=== PATIENT | female | born 1980 | race African-American/Black ===

== ENCOUNTER 2018-02-02 19:11 | Emergency (ER) | payer OTHER ==
[~2018-02-02] VITALS: Ht 172.7 cm; Wt 86.2 kg
[2018-02-02 20:07] LABS: MICROSCOPIC NOT IND
[2018-02-02 20:09] LABS: BASOPHILS # (AUTO) 0.03 x10^3/uL (0-0.1); BASOPHILS % (AUTO) 0 % (0-1); EOSINOPHILS # (AUTO) 0.13 x10^3/uL (0-0.4); EOSINOPHILS % (AUTO) 1 % (1-7); LYMPHOCYTES # (AUTO) 2.21 x10^3/uL (1-3.4); LYMPHOCYTES % (AUTO) 24 % (22-44); MD NO; MEAN CORPUSCULAR HEMOGLOBIN 21.2 pg (27.0-34.8); MEAN CORPUSCULAR VOLUME 66.4 fL (80-100); MEAN PLATELET VOLUME 8.9 fL (7.4-10.4); MONOCYTES # (AUTO) 0.72 x10^3/uL (0.2-0.8); MONOCYTES % (AUTO) 8 % (2-9); NEUTROPHILS # (AUTO) 6.31 x10^3/uL (1.8-6.8); NEUTROPHILS % (AUTO) 67 % (42-75); PLATELET COUNT 295 x10^3/uL (130-400); RED CELL DISTRIBUTION WIDTH 21.4 % (9.6-15.2)
[2018-02-02 20:16] LABS: CULTURE INDICATED? NO
[2018-02-02 20:20] LABS: ALANINE AMINOTRANSFERASE 53 U/L (12-78); ALBUMIN 3.5 g/dL (3.4-5.0); ANION GAP 12 mmol/L (5-15); CALCIUM 9.1 mg/dL (8.5-10.1); CHLORIDE 109 mmol/L (98-107); CREATININE 0.58 mg/dL (0.55-1.02)
[2018-02-02 20:23] LABS: ALKALINE PHOSPHATASE 49 U/L (45-117); BILIRUBIN,TOTAL 0.2 mg/dL (0.2-1.0); TOTAL PROTEIN 7.5 g/dL (6.4-8.2)
[2018-02-02 22:09] VITALS: BP 135/88
== END 2018-02-02 23:00 | disposition home or self-care (01) ==
LOC: ED 21:38
DX: O46.92 Antepartum hemorrhage, unspecified, second trimester (principal); O21.9 Vomiting of pregnancy, unspecified; R10.31 Right lower quadrant pain; E86.9 Volume depletion, unspecified; Z3A.16 16 weeks gestation of pregnancy
CPT/HCPCS: 36415; 76815; 80053; 81003; 84112; 85025; 99285

== ENCOUNTER 2020-07-30 11:39 | Inpatient (IN) | payer OTHER ==
[~2020-07-30] VITALS: Ht 175.3 cm; Wt 69.1 kg
--- NOTE | 2020-07-30 12:36 | NUR ---
NEFTALY MATTA AND STATES THAT SHE HAS BEEN HAVING ABDOMINAL AND PELVIC PAIN SINCE SHE HAD AN ENDOMETRIAL ABLASION IN JUNE.
[2020-07-30 12:45] LABS: MICROSCOPIC AUTO
--- NOTE | 2020-07-30 13:57 | NUR ---
RESTING WITH EYES CLOSED WHILE AWAITING DISPO
--- NOTE | 2020-07-30 14:08 | NUR ---
MD AT BEDSIDE EXAMINING PT
[2020-07-30] MEDS ORDERED: ONDANSETRON 2MG/ML, 2ML IVPush ONE (14:30)
[2020-07-30] MEDS ORDERED: SODIUM CHLORIDE FLUSH 10ML SYR IVF ONE (14:30)
[2020-07-30] MEDS ORDERED: SODIUM CHLORIDE 0.9% 1,000ML IVBOLUS ONE (14:30)
[2020-07-30 14:34] LABS: BASOPHILS % (AUTO) 1 % (0-1); EOSINOPHILS % (AUTO) 0 % (1-7); LYMPHOCYTES % (AUTO) 15 % (22-44); MEAN CORPUSCULAR HEMOGLOBIN 21.1 pg (27.0-34.8); MEAN PLATELET VOLUME 8.1 fL (7.4-10.4); MONOCYTES % (AUTO) 10 % (2-9); NEUTROPHILS % (AUTO) 74 % (42-75); PLATELET COUNT 474 x10^3/uL (130-400); RED BLOOD COUNT 3.85 x10^6/uL (3.82-5.3); RED CELL DISTRIBUTION WIDTH 23.3 % (9.6-15.2)
[2020-07-30 14:45] LABS: ALBUMIN 2.6 g/dL (3.4-5.0); ANION GAP 6 mmol/L (5-15); CALCIUM 9.1 mg/dL (8.5-10.1); CHLORIDE 105 mmol/L (98-107); CREATININE 0.69 mg/dL (0.55-1.02)
[2020-07-30] MEDS ORDERED: HYDROmorphone 1 MG/ML, 1ML INJ ONE ×2 (14:53→16:35)
[2020-07-30] MEDS ORDERED: ONDANSETRON 2MG/ML, 2ML ONE (14:54)
[2020-07-30 14:58] LABS: MD MORPH REVIEW ONLY
[2020-07-30] MEDS: HYDROmorphone 2 MG/ML, 1ML IVPush PRN ×2 (14:58→16:39)
[2020-07-30 14:59] LABS: MICROCYTOSIS 2+; OVALOCYTES 1+
[2020-07-30 15:00] LABS: HYPOCHROMIA 1+
[2020-07-30 15:01] LABS: TEAR DROPS 1+
[2020-07-30 15:05] LABS: <PLATELET ESTIMATE> INCREASED; <PLT MORPHOLOGY> NORMAL PLT MORPH; PMNS WITH VACUOLES 1+
--- NOTE | 2020-07-30 15:05 | NUR ---
after medicated as noted on aug for pain, pt to ct via [facility]
[2020-07-30 15:06] LABS: ANISOCYTOSIS 1+
[2020-07-30] MEDS ORDERED: OMNIPAQUE 350 MG/ML, 100ML BOTTLE ONE (15:23)
--- NOTE | 2020-07-30 16:43 | NUR ---
PT STATES SHE HAD REDUCTION IN PAIN TO 0/10 AFTER INITIALLY MEDICATED FOR SAME BUT THAT IT IS BACK TO 5/10. REMEDICATED NOTED ON MAR
[2020-07-30] MEDS ORDERED: GENTAMICIN PER PHARMACY MC PRN ×2 (17:00→21:30)
[2020-07-30] MEDS ORDERED: AMPICILLIN 1 GM in SODIUM CHLORIDE 0.9% 100 ML IV STA (17:00)
[2020-07-30] MEDS ORDERED: CLINDAMYCIN PMX 600MG/50ML 50 ML IV ONE (17:00)
[2020-07-30] MEDS ORDERED: CLINDAMYCIN PMX 600MG/50ML 50 ML ONE (17:04)
[2020-07-30] MEDS ORDERED: SODIUM CHLORIDE 0.9% IV ONE (17:30)
[2020-07-30] MEDS ORDERED: GENTAMICIN IV ONE (17:30)
--- NOTE | 2020-07-30 19:06 | NUR ---
REPORT TO ELIE KRISHNAN. PT TO BE TRANSPORTED TO FLOOR.
--- NOTE | 2020-07-30 19:18 | NUR ---
THROUGHPUT: PER DR JAIMES, "DR SANCHEZ TO SEE PT TO DETERMINE WHETHER OR NOT PT NEEDS SURG, DR SANCHEZ IS AWARE OF PT & WILL SEE PT TONIGHT ADMITTING MD.", ZENON (NOC THROUGHPUT) AWARE.
--- NOTE | 2020-07-30 19:30 | NUR ---
SPOKE WITH EULOGIO DELGADILLO. SHE IS AWARE DR. SANCHEZ IS ON CASE AND DR. SMITH SPOKE WITH THEM.
--- NOTE | 2020-07-30 19:40 | NUR ---
TP: DR SANCHEZ IN ROOM
--- NOTE | 2020-07-30 20:42 | NUR ---
DANAE RN: INFECTION CONTROL OKAY WITH PATIENT GOING TO SURGICAL FLOOR. DR SANCHEZ OKAY WITH PT GOING TO SURGICAL FLOOR NON COVID.
[2020-07-30] MEDS ORDERED: MEPERIDINE/PF 25MG/0.5ML IVPush PRN (21:00)
[2020-07-30] MEDS ORDERED: ONDANSETRON ODT 4 MG PO PRN (21:00)
[2020-07-30] MEDS ORDERED: PHARMACOKINETIC MONITORING MC PRN (21:30)
[2020-07-30] MEDS ORDERED: MEPERIDINE/PF 50 MG/ML IM PRN (21:30)
[2020-07-30] MEDS ORDERED: PHARMACOKINETIC CONSULTATION MC ONE (21:30)
[2020-07-30] MEDS: HYDROmorphone 1 MG/ML, 1ML INJ IVPush PRN (21:56)
[2020-07-30] MEDS: DIPHENHYDRAMINE 50 MG CAPSULE PO PRN (21:56)
[2020-07-30] MEDS: LACTATED RINGERS 1,000 ML IV SCH (22:00)
[2020-07-30] MEDS: ACETAMINOPHEN 500 MG TABLET PO PRN (22:37)
[2020-07-30] MEDS: OXYcodone IR 5MG TABLET PO PRN (22:38)
[2020-07-30 22:40] VITALS: BP 99/61
[2020-07-30] MEDS: CLINDAMYCIN PMX 600MG/50ML 50 ML IV SCH (22:58)
[2020-07-31] MEDS: AMPICILLIN 1 GM in SODIUM CHLORIDE 0.9% 100 ML IV SCH ×4 (00:29→19:39)
[2020-07-31 02:39] VITALS: BP 87/54
[2020-07-31] MEDS: OXYcodone IR 5MG TABLET PO PRN ×2 (02:49→07:20)
[2020-07-31] MEDS ORDERED: GENTAMICIN 100 MG in SODIUM CHLORIDE 0.9% 50 ML IV SCH (03:00)
[2020-07-31 03:26] VITALS: BP 92/57
[2020-07-31] MEDS: CLINDAMYCIN PMX 600MG/50ML 50 ML IV SCH ×4 (04:55→23:20)
[2020-07-31 05:43] LABS: BASOPHILS % (AUTO) 0 % (0-1); EOSINOPHILS % (AUTO) 0 % (1-7); LYMPHOCYTES % (AUTO) 15 % (22-44); MEAN CORPUSCULAR HEMOGLOBIN 21.1 pg (27.0-34.8); MEAN CORPUSCULAR HGB CONC 31.4 g/dL (32.4-35.8); MEAN PLATELET VOLUME 8.9 fL (7.4-10.4); MONOCYTES % (AUTO) 11 % (2-9); NEUTROPHILS % (AUTO) 73 % (42-75); PLATELET COUNT 411 x10^3/uL (130-400); RED CELL DISTRIBUTION WIDTH 22.5 % (9.6-15.2)
[2020-07-31] MEDS: HYDROmorphone 1 MG/ML, 1ML INJ IVPush PRN ×2 (06:08→13:01)
[2020-07-31 06:41] LABS: MD SCAN
[2020-07-31 07:55] VITALS: BP 103/64
[2020-07-31] MEDS: LACTATED RINGERS 1,000 ML IV SCH ×3 (08:00→23:07)
[2020-07-31] MEDS ORDERED: MIDAZOLAM 1 MG/ML, 2ML ONE (08:29)
[2020-07-31] MEDS ORDERED: FENTANYL PF 100 MCG/2ML ONE ×2 (08:29→09:00)
[2020-07-31] MEDS ORDERED: OXYcodone 5 MG/5 ML ORAL.SOL UDC PO PRN (09:00)
[2020-07-31] MEDS ORDERED: HYDROcodone/APAP 7.5-325MG/15ML UDC PO PRN (09:00)
[2020-07-31] MEDS ORDERED: ONDANSETRON 2MG/ML, 2ML IVPush PRN (09:00)
[2020-07-31] MEDS ORDERED: HYDROmorphone 1 MG/ML, 1ML INJ IVPush PRN (09:00)
[2020-07-31] MEDS ORDERED: MEPERIDINE/PF 25MG/0.5ML IVPush PRN (09:00)
[2020-07-31] MEDS ORDERED: PROMETHAZINE 25 MG/ML, 1ML IVPush PRN (09:00)
[2020-07-31] MEDS ORDERED: OXYcodone 5 MG/5 ML ORAL.SOL UDC ONE (09:01)
[2020-07-31] MEDS ORDERED: PROPOFOL 10 MG/ML, 20ML ONE (09:26)
[2020-07-31] MEDS ORDERED: LIDOCAINE-MPF 2% ,5ML ONE (09:26)
[2020-07-31] MEDS ORDERED: ROCURONIUM 10MG/ML,5ML ONE ×2 (09:26)
[2020-07-31] MEDS ORDERED: PHENYLEPHRINE 10 MG/ML ONE (09:26)
[2020-07-31] MEDS ORDERED: CEFAZOLIN 1,000 MG ONE (09:26)
[2020-07-31] MEDS ORDERED: SUCCINYLCHOLINE 20 MG/ML, 10ML ONE (09:26)
[2020-07-31] MEDS ORDERED: ONDANSETRON 2MG/ML, 2ML ONE (09:26)
[2020-07-31] MEDS ORDERED: DEXAMETHASONE 4 MG/ML, 5ML ONE (09:26)
[2020-07-31] MEDS ORDERED: GLYCOPYRROLATE 0.2MG/1ML, 5ML ONE (09:26)
[2020-07-31] MEDS ORDERED: NEOSTIGMINE 1 MG/ML, 10ML ONE (09:26)
[2020-07-31] MEDS ORDERED: BUPIVACAINE/PF 0.25% ONE (09:34)
[2020-07-31] MEDS: GENTAMICIN 120 MG in SODIUM CHLORIDE 0.9% 50 ML IV SCH ×2 (10:00→18:26)
[2020-07-31] MEDS: FENTANYL PF 100 MCG/2ML IV PRN ×2 (12:15→12:20)
[2020-07-31] MEDS ORDERED: KETOROLAC 30 MG/1 ML ONE (12:21)
[2020-07-31] MEDS ORDERED: KETOROLAC 30 MG/1 ML IVPush ONE (12:30)
[2020-07-31 12:54] VITALS: BP 102/63
[2020-07-31] MEDS: OXYcodone 5 MG/5 ML ORAL.SOL UDC PO PRN ×3 (15:57→23:23)
[2020-07-31] MEDS: IBUPROFEN 600 MG TABLET PO SCH ×2 (15:57→22:09)
[2020-07-31 17:43] LABS: BASOPHILS % (AUTO) 0 % (0-1); EOSINOPHILS % (AUTO) 0 % (1-7); LYMPHOCYTES % (AUTO) 3 % (22-44); MEAN CORPUSCULAR HEMOGLOBIN 22.1 pg (27.0-34.8); MEAN CORPUSCULAR HGB CONC 31.5 g/dL (32.4-35.8); MEAN PLATELET VOLUME 7.6 fL (7.4-10.4); MONOCYTES % (AUTO) 5 % (2-9); NEUTROPHILS % (AUTO) 92 % (42-75); PLATELET COUNT 420 x10^3/uL (130-400); RED BLOOD COUNT 4.14 x10^6/uL (3.82-5.3)
[2020-07-31 17:54] LABS: ANION GAP 7 mmol/L (5-15); CALCIUM 8.3 mg/dL (8.5-10.1); CHLORIDE 107 mmol/L (98-107); CREATININE 0.74 mg/dL (0.55-1.02)
[2020-07-31 18:10] LABS: MD SCAN
[2020-07-31] MEDS: SIMETHICONE 80 MG CHEW TAB PO SCH (19:39)
[2020-07-31 20:05] VITALS: BP 93/59
[2020-07-31] MEDS: HYDROmorphone 1 MG/ML, 1ML INJ IV PRN (22:09)
[2020-07-31] MEDS: ACETAMINOPHEN 500 MG TABLET PO PRN (23:22)
[2020-07-31] MEDS: DIPHENHYDRAMINE 50 MG CAPSULE PO PRN (23:22)
[2020-07-31 23:26] VITALS: BP 87/55
[2020-08-01] VITALS (9 sets, daily range): BP systolic 82–105; BP diastolic 55–75
[2020-08-01] MEDS: AMPICILLIN 1 GM in SODIUM CHLORIDE 0.9% 100 ML IV SCH ×2 (01:34→07:29)
[2020-08-01] MEDS: HYDROmorphone 1 MG/ML, 1ML INJ IV PRN ×2 (01:44→11:00)
[2020-08-01] MEDS: GENTAMICIN 120 MG in SODIUM CHLORIDE 0.9% 50 ML IV SCH ×2 (02:22→11:01)
[2020-08-01] MEDS: OXYcodone 5 MG/5 ML ORAL.SOL UDC PO PRN ×2 (03:50→07:30)
[2020-08-01] MEDS: CLINDAMYCIN PMX 600MG/50ML 50 ML IV SCH ×2 (05:08→11:43)
[2020-08-01] MEDS: IBUPROFEN 600 MG TABLET PO SCH ×4 (05:08→19:45)
[2020-08-01 05:40] LABS: BASOPHILS % (AUTO) 0 % (0-1); EOSINOPHILS % (AUTO) 0 % (1-7); LYMPHOCYTES % (AUTO) 5 % (22-44); MEAN CORPUSCULAR HEMOGLOBIN 22.2 pg (27.0-34.8); MEAN CORPUSCULAR HGB CONC 32.1 g/dL (32.4-35.8); MEAN PLATELET VOLUME 8.7 fL (7.4-10.4); MONOCYTES % (AUTO) 6 % (2-9); NEUTROPHILS % (AUTO) 89 % (42-75); PLATELET COUNT 348 x10^3/uL (130-400); RED BLOOD COUNT 3.35 x10^6/uL (3.82-5.3); RED CELL DISTRIBUTION WIDTH 23.6 % (9.6-15.2)
[2020-08-01 06:59] LABS: MD SCAN
[2020-08-01] MEDS: ACETAMINOPHEN 500 MG TABLET PO PRN (07:30)
[2020-08-01] MEDS: SIMETHICONE 80 MG CHEW TAB PO SCH ×2 (08:57→19:45)
[2020-08-01] MEDS: LACTATED RINGERS 1,000 ML IV SCH ×2 (09:14→21:57)
[2020-08-01] MEDS: PIPERACILLIN/TAZO/PMX 3.375GM 50 ML IV SCH ×2 (16:02→21:56)
[2020-08-01] MEDS ORDERED: MAGNESIUM HYDROXIDE 8%, 30ML UDC ONE (18:33)
[2020-08-01] MEDS: MAGNESIUM HYDROXIDE 8%, 30ML UDC PO SCH (18:42)
[2020-08-01] MEDS: OXYcodone/APAP 7.5/325MG TABLET PO PRN (22:06)
[2020-08-01] MEDS ORDERED: GENTAMICIN 120 MG in SODIUM CHLORIDE 0.9% 50 ML IV SCH (23:00)
[2020-08-02] MEDS: DIPHENHYDRAMINE 50 MG CAPSULE PO PRN (00:54)
[2020-08-02 01:34] VITALS: BP 90/56
[2020-08-02] MEDS: PIPERACILLIN/TAZO/PMX 3.375GM 50 ML IV SCH ×4 (03:38→21:58)
[2020-08-02 05:21] LABS: BASOPHILS % (AUTO) 0 % (0-1); EOSINOPHILS % (AUTO) 0 % (1-7); LYMPHOCYTES % (AUTO) 9 % (22-44); MEAN CORPUSCULAR HEMOGLOBIN 22.8 pg (27.0-34.8); MEAN CORPUSCULAR HGB CONC 32.3 g/dL (32.4-35.8); MONOCYTES % (AUTO) 5 % (2-9); NEUTROPHILS % (AUTO) 86 % (42-75); PLATELET COUNT 318 x10^3/uL (130-400); RED BLOOD COUNT 3.48 x10^6/uL (3.82-5.3); RED CELL DISTRIBUTION WIDTH 24.9 % (9.6-15.2)
[2020-08-02 05:33] LABS: ALBUMIN 1.8 g/dL (3.4-5.0); ANION GAP 5 mmol/L (5-15); CHLORIDE 108 mmol/L (98-107)
[2020-08-02 05:39] LABS: ALANINE AMINOTRANSFERASE 133 U/L (12-78); ALKALINE PHOSPHATASE 263 U/L (45-117); BILIRUBIN,TOTAL 0.8 mg/dL (0.2-1.0); CREATININE 0.66 mg/dL (0.55-1.02)
[2020-08-02 06:09] LABS: MD MORPH REVIEW ONLY
[2020-08-02 06:10] LABS: ANISOCYTOSIS 2+; HYPOCHROMIA 1+; MICROCYTOSIS 2+; OVALOCYTES 2+
[2020-08-02 06:11] LABS: TARGET CELLS 1+
[2020-08-02 06:12] LABS: <PLATELET ESTIMATE> ADEQUATE; <PLT MORPHOLOGY> NORMAL PLT MORPH; TEAR DROPS 1+
[2020-08-02] MEDS: IBUPROFEN 600 MG TABLET PO SCH ×4 (06:19→21:58)
[2020-08-02] MEDS: LACTATED RINGERS 1,000 ML IV SCH ×3 (06:24→23:35)
[2020-08-02] MEDS: OXYcodone/APAP 7.5/325MG TABLET PO PRN ×3 (06:35→23:35)
[2020-08-02 07:50] VITALS: BP 123/85
[2020-08-02] MEDS: SIMETHICONE 80 MG CHEW TAB PO SCH ×2 (07:53→21:58)
[2020-08-02] MEDS: MAGNESIUM HYDROXIDE 8%, 30ML UDC PO SCH (07:54)
[2020-08-02] MEDS: NORETHINDRONE 5 MG TAB PO SCH (09:00)
[2020-08-02] MEDS: POTASSIUM CHLORIDE 10 MEQ TABLET.ER PO SCH (09:37)
[2020-08-02] MEDS: CALCIUM CARBONATE 500 MG TABLET PO SCH (09:37)
[2020-08-02 13:56] VITALS: BP 101/68
[2020-08-02 14:12] LABS: INTERNATIONAL NORMALIZED RATIO 1.43 (0.93-1.1); PARTIAL THROMBOPLASTIN TIME 30 Seconds (25-31); PROTHROMBIN TIME 15.2 Seconds (9.6-11.5)
[2020-08-02 14:18] LABS: FIBRINOGEN > 713 mg/dL (200-340)
[2020-08-02 19:12] VITALS: BP 106/66
[2020-08-02 21:27] LABS: HCT (SEDRATE) 28.9 % (34.6-47.8)
[2020-08-03 00:58] VITALS: BP 108/59
[2020-08-03] MEDS: PIPERACILLIN/TAZO/PMX 3.375GM 50 ML IV SCH ×4 (04:21→21:04)
[2020-08-03 04:36] LABS: BASOPHILS % (AUTO) 1 % (0-1); EOSINOPHILS % (AUTO) 0 % (1-7); LYMPHOCYTES % (AUTO) 11 % (22-44); MEAN CORPUSCULAR HGB CONC 32.4 g/dL (32.4-35.8); MEAN PLATELET VOLUME 8.5 fL (7.4-10.4); MONOCYTES % (AUTO) 8 % (2-9); NEUTROPHILS % (AUTO) 81 % (42-75); PLATELET COUNT 321 x10^3/uL (130-400); RED BLOOD COUNT 3.42 x10^6/uL (3.82-5.3); RED CELL DISTRIBUTION WIDTH 24.9 % (9.6-15.2)
[2020-08-03 04:47] LABS: ALBUMIN 1.7 g/dL (3.4-5.0); ANION GAP 5 mmol/L (5-15); CHLORIDE 109 mmol/L (98-107)
[2020-08-03 04:51] LABS: ALANINE AMINOTRANSFERASE 81 U/L (12-78); ALKALINE PHOSPHATASE 244 U/L (45-117); BILIRUBIN,TOTAL 0.4 mg/dL (0.2-1.0); CREATININE 0.64 mg/dL (0.55-1.02); TOTAL PROTEIN 5.5 g/dL (6.4-8.2)
[2020-08-03] MEDS: IBUPROFEN 600 MG TABLET PO SCH ×4 (05:27→20:08)
[2020-08-03] MEDS: LACTATED RINGERS 1,000 ML IV SCH ×3 (05:27→23:12)
[2020-08-03] MEDS: OXYcodone/APAP 7.5/325MG TABLET PO PRN ×3 (05:27→20:09)
[2020-08-03 05:46] LABS: ANISOCYTOSIS 2+; MD MORPH REVIEW ONLY; MICROCYTOSIS 2+
[2020-08-03 05:47] LABS: OVALOCYTES 2+; SCHISTOCYTES 1+
[2020-08-03 05:48] LABS: HYPOCHROMIA 1+
[2020-08-03 05:49] LABS: <PLATELET ESTIMATE> ADEQUATE; <PLT MORPHOLOGY> NORMAL PLT MORPH; TARGET CELLS 1+; TEAR DROPS 1+
[2020-08-03 07:55] VITALS: BP 106/74
[2020-08-03] MEDS: SIMETHICONE 80 MG CHEW TAB PO SCH ×2 (08:06→20:08)
[2020-08-03] MEDS: CALCIUM CARBONATE 500 MG TABLET PO SCH (08:06)
[2020-08-03] MEDS: POTASSIUM CHLORIDE 10 MEQ TABLET.ER PO SCH (08:06)
[2020-08-03] MEDS: NORETHINDRONE 5 MG TAB PO SCH (08:08)
[2020-08-03] MEDS ORDERED: POTASSIUM CHLORIDE 20 MEQ TAB.ER.PRT PO ONE (11:00)
[2020-08-03 12:38] LABS: ABSOLUTE RETICS # 0.039 x10^6/uL (0.5-2.5); RED BLOOD COUNT 3.76 x10^6/uL (3.82-5.3); RETICULOCYTE COUNT % 1.04 % (0.5-1.5)
[2020-08-03 13:35] VITALS: BP 120/80
[2020-08-03 18:37] VITALS: BP 121/88
[2020-08-04 01:11] VITALS: BP 120/83
[2020-08-04] MEDS: OXYcodone/APAP 7.5/325MG TABLET PO PRN ×4 (02:29→22:39)
[2020-08-04] MEDS: DIPHENHYDRAMINE 50 MG CAPSULE PO PRN (02:31)
[2020-08-04] MEDS: PIPERACILLIN/TAZO/PMX 3.375GM 50 ML IV SCH ×4 (02:58→22:40)
[2020-08-04 05:10] LABS: BASOPHILS % (AUTO) 0 % (0-1); EOSINOPHILS % (AUTO) 0 % (1-7); LYMPHOCYTES % (AUTO) 15 % (22-44); MEAN CORPUSCULAR HEMOGLOBIN 23.4 pg (27.0-34.8); MEAN CORPUSCULAR HGB CONC 32.7 g/dL (32.4-35.8); MEAN PLATELET VOLUME 8.5 fL (7.4-10.4); MONOCYTES % (AUTO) 8 % (2-9); NEUTROPHILS % (AUTO) 77 % (42-75); PLATELET COUNT 345 x10^3/uL (130-400); RED BLOOD COUNT 3.35 x10^6/uL (3.82-5.3); RED CELL DISTRIBUTION WIDTH 26.6 % (9.6-15.2)
[2020-08-04 05:17] LABS: ALANINE AMINOTRANSFERASE 60 U/L (12-78); ALBUMIN 1.6 g/dL (3.4-5.0); ANION GAP 7 mmol/L (5-15); CALCIUM 8.2 mg/dL (8.5-10.1); CHLORIDE 106 mmol/L (98-107); CREATININE 0.63 mg/dL (0.55-1.02)
[2020-08-04 05:19] LABS: ALKALINE PHOSPHATASE 266 U/L (45-117); BILIRUBIN,TOTAL 0.4 mg/dL (0.2-1.0); TOTAL PROTEIN 5.8 g/dL (6.4-8.2)
[2020-08-04 05:29] LABS: D-DIMER 13.34 ug/mlFEU (0.00-0.52); INTERNATIONAL NORMALIZED RATIO 1.27 (0.93-1.1); PROTHROMBIN TIME 13.5 Seconds (9.6-11.5)
[2020-08-04 05:35] LABS: FIBRINOGEN > 713 mg/dL (200-340)
[2020-08-04] MEDS: IBUPROFEN 600 MG TABLET PO SCH ×4 (05:50→22:40)
[2020-08-04] MEDS: LACTATED RINGERS 1,000 ML IV SCH (05:50)
[2020-08-04 05:58] LABS: MD SCAN
[2020-08-04] MEDS ORDERED: POTASSIUM CHLORIDE 20 MEQ PACKET PO ONE (06:30)
[2020-08-04] MEDS: CALCIUM CARBONATE 500 MG TABLET PO SCH (08:47)
[2020-08-04] MEDS: POTASSIUM CHLORIDE 10 MEQ TABLET.ER PO SCH (08:47)
[2020-08-04] MEDS: NORETHINDRONE 5 MG TAB PO SCH (08:47)
[2020-08-04] MEDS: SIMETHICONE 80 MG CHEW TAB PO SCH ×2 (08:47→22:39)
[2020-08-04 09:07] VITALS: BP 130/86
[2020-08-04] MEDS ORDERED: SODIUM CHLORIDE FLUSH 10ML SYR IVF PRN (14:00)
[2020-08-04 15:58] VITALS: BP 138/84
[2020-08-04] MEDS ORDERED: OXYcodone/APAP 7.5/325MG TABLET ONE (16:33)
[2020-08-04 19:55] VITALS: BP 138/92
[2020-08-04] MEDS: SODIUM CHLORIDE FLUSH 10ML SYR IVF SCH (22:40)
[2020-08-05 01:31] VITALS: BP 112/74
[2020-08-05] MEDS: PIPERACILLIN/TAZO/PMX 3.375GM 50 ML IV SCH ×4 (04:38→22:00)
[2020-08-05] MEDS: IBUPROFEN 600 MG TABLET PO SCH ×5 (04:38→20:47)
[2020-08-05] MEDS: OXYcodone/APAP 7.5/325MG TABLET PO PRN ×5 (04:38→20:42)
[2020-08-05 06:15] LABS: BASOPHILS % (AUTO) 0 % (0-1); EOSINOPHILS % (AUTO) 0 % (1-7); LYMPHOCYTES % (AUTO) 18 % (22-44); MEAN CORPUSCULAR HGB CONC 32.8 g/dL (32.4-35.8); MEAN PLATELET VOLUME 8.2 fL (7.4-10.4); MONOCYTES % (AUTO) 12 % (2-9); NEUTROPHILS % (AUTO) 70 % (42-75); PLATELET COUNT 363 x10^3/uL (130-400); RED BLOOD COUNT 3.52 x10^6/uL (3.82-5.3)
[2020-08-05 06:36] LABS: MD SCAN
[2020-08-05] MEDS ORDERED: POTASSIUM CHLORIDE 10% 40 MEQ/30 ML UDC PO ONE (07:30)
[2020-08-05 08:15] VITALS: BP 122/81
[2020-08-05] MEDS: NORETHINDRONE 5 MG TAB PO SCH (09:00)
[2020-08-05] MEDS: POTASSIUM CHLORIDE 10 MEQ TABLET.ER PO SCH (10:27)
[2020-08-05] MEDS: SIMETHICONE 80 MG CHEW TAB PO SCH ×2 (10:27→20:42)
[2020-08-05] MEDS: CALCIUM CARBONATE 500 MG TABLET PO SCH (10:27)
[2020-08-05] MEDS: SODIUM CHLORIDE FLUSH 10ML SYR IVF SCH ×2 (10:46→20:43)
[2020-08-05 13:45] VITALS: BP 129/89
[2020-08-05] MEDS ORDERED: MAGNESIUM SULFATE PMX 2GM/50ML 50 ML IV ONE (18:00)
[2020-08-05 19:29] VITALS: BP 118/77
[2020-08-05] MEDS: MAGNESIUM OXIDE 400 MG TABLET PO SCH (20:42)
[2020-08-05] MEDS: DIPHENHYDRAMINE 50 MG CAPSULE PO PRN (22:00)
[2020-08-06 00:10] VITALS: BP 114/67
[2020-08-06] MEDS: OXYcodone/APAP 7.5/325MG TABLET PO PRN ×5 (00:55→23:46)
[2020-08-06] MEDS: PIPERACILLIN/TAZO/PMX 3.375GM 50 ML IV SCH ×4 (05:04→23:46)
[2020-08-06] MEDS: PANTOPRAZOLE 40MG TABLET PO SCH (06:15)
[2020-08-06] MEDS: IBUPROFEN 600 MG TABLET PO SCH ×4 (06:15→19:40)
[2020-08-06 06:39] VITALS: BP 132/87
[2020-08-06 06:48] LABS: BASOPHILS % (AUTO) 0 % (0-1); EOSINOPHILS % (AUTO) 0 % (1-7); LYMPHOCYTES % (AUTO) 17 % (22-44); MEAN CORPUSCULAR HEMOGLOBIN 22.9 pg (27.0-34.8); MEAN CORPUSCULAR HGB CONC 32.6 g/dL (32.4-35.8); MEAN PLATELET VOLUME 7.7 fL (7.4-10.4); MONOCYTES % (AUTO) 10 % (2-9); NEUTROPHILS % (AUTO) 72 % (42-75); PLATELET COUNT 385 x10^3/uL (130-400); RED BLOOD COUNT 3.51 x10^6/uL (3.82-5.3); RED CELL DISTRIBUTION WIDTH 26.6 % (9.6-15.2)
[2020-08-06 07:15] LABS: ANISOCYTOSIS 2+; HYPOCHROMIA 1+; MD MORPH REVIEW ONLY; MICROCYTOSIS 2+; OVALOCYTES 2+
[2020-08-06 07:16] LABS: <PLATELET ESTIMATE> ADEQUATE; <PLT MORPHOLOGY> NORMAL PLT MORPH; SCHISTOCYTES 1+; TARGET CELLS 1+; TEAR DROPS 1+
[2020-08-06] MEDS: SODIUM CHLORIDE FLUSH 10ML SYR IVF SCH ×2 (09:00→23:47)
[2020-08-06] MEDS: NORETHINDRONE 5 MG TAB PO SCH (09:46)
[2020-08-06] MEDS: MAGNESIUM OXIDE 400 MG TABLET PO SCH ×2 (09:46→19:40)
[2020-08-06] MEDS: POTASSIUM CHLORIDE 10 MEQ TABLET.ER PO SCH (09:46)
[2020-08-06] MEDS: SIMETHICONE 80 MG CHEW TAB PO SCH ×2 (09:46→19:40)
[2020-08-06] MEDS: CALCIUM CARBONATE 500 MG TABLET PO SCH (09:46)
[2020-08-06 13:12] LABS: BASOPHILS % (AUTO) 0 % (0-1); EOSINOPHILS % (AUTO) 0 % (1-7); LYMPHOCYTES % (AUTO) 18 % (22-44); MEAN CORPUSCULAR HEMOGLOBIN 22.6 pg (27.0-34.8); MEAN CORPUSCULAR HGB CONC 32.3 g/dL (32.4-35.8); MEAN PLATELET VOLUME 8.6 fL (7.4-10.4); MONOCYTES % (AUTO) 10 % (2-9); NEUTROPHILS % (AUTO) 72 % (42-75); PLATELET COUNT 423 x10^3/uL (130-400); RED BLOOD COUNT 3.63 x10^6/uL (3.82-5.3); RED CELL DISTRIBUTION WIDTH 26.8 % (9.6-15.2)
[2020-08-06 13:14] VITALS: BP 129/85
[2020-08-06 13:20] LABS: ALANINE AMINOTRANSFERASE 42 U/L (12-78); ANION GAP 6 mmol/L (5-15); CALCIUM 8.6 mg/dL (8.5-10.1); CHLORIDE 106 mmol/L (98-107); CREATININE 0.77 mg/dL (0.55-1.02)
[2020-08-06 13:22] LABS: ALKALINE PHOSPHATASE 310 U/L (45-117); BILIRUBIN,TOTAL 0.4 mg/dL (0.2-1.0); TOTAL PROTEIN 7.1 g/dL (6.4-8.2)
[2020-08-06 14:09] LABS: MD MORPH REVIEW ONLY
[2020-08-06 14:10] LABS: <PLATELET ESTIMATE> INCREASED; <PLT MORPHOLOGY> NORMAL PLT MORPH
[2020-08-06 14:11] LABS: ANISOCYTOSIS 2+; HYPOCHROMIA 1+; MICROCYTOSIS 2+; OVALOCYTES 2+; TARGET CELLS 1+; TEAR DROPS 1+
[2020-08-06] MEDS ORDERED: OMNIPAQUE 350 MG/ML, 100ML BOTTLE ONE (15:40)
[2020-08-06] MEDS ORDERED: morphine SULFATE 10 MG/ML, 1ML IVPush PRN (19:30)
[2020-08-06 19:52] VITALS: BP 134/82
[2020-08-07 00:43] VITALS: BP 112/78
[2020-08-07] MEDS: IBUPROFEN 600 MG TABLET PO SCH ×4 (04:17→22:46)
[2020-08-07] MEDS: PANTOPRAZOLE 40MG TABLET PO SCH (04:17)
[2020-08-07] MEDS: OXYcodone/APAP 7.5/325MG TABLET PO PRN ×5 (04:17→22:46)
[2020-08-07] MEDS: PIPERACILLIN/TAZO/PMX 3.375GM 50 ML IV SCH ×3 (05:46→20:53)
[2020-08-07 06:14] LABS: MEAN CORPUSCULAR HEMOGLOBIN 23.4 pg (27.0-34.8); MEAN CORPUSCULAR HGB CONC 33.3 g/dL (32.4-35.8); MEAN PLATELET VOLUME 8.5 fL (7.4-10.4); PLATELET COUNT 399 x10^3/uL (130-400); RED BLOOD COUNT 3.22 x10^6/uL (3.82-5.3); RED CELL DISTRIBUTION WIDTH 26.3 % (9.6-15.2)
[2020-08-07 06:26] LABS: ALBUMIN 1.8 g/dL (3.4-5.0); ANION GAP 7 mmol/L (5-15); CALCIUM 8.4 mg/dL (8.5-10.1); CHLORIDE 107 mmol/L (98-107)
[2020-08-07 06:30] LABS: ALANINE AMINOTRANSFERASE 35 U/L (12-78); ALKALINE PHOSPHATASE 281 U/L (45-117); BILIRUBIN,TOTAL 0.4 mg/dL (0.2-1.0); CREATININE 0.65 mg/dL (0.55-1.02); TOTAL PROTEIN 6.6 g/dL (6.4-8.2)
[2020-08-07 06:59] LABS: MD YES
[2020-08-07 07:00] LABS: BAND#(MANUAL) 0.11 x10^3/uL; BANDS%(MANUAL) 1 % (0-7); BASOS#(MANUAL) 0.11 x10^3/uL (0-0.1); BASOS% (MANUAL) 1 % (0-1); EOS#(MANUAL) 0.11 x10^3/uL (0.0-0.4); EOS% (MANUAL) 1 % (1-7); LYMPH#(MANUAL) 0.96 x10^3/uL (1-3.4); LYMPHS% (MANUAL) 9 % (22-44); MONOS#(MANUAL) 0.54 x10^3/uL (0.3-2.7); MONOS% (MANUAL) 5 % (2-9); SEG#(MANUAL) 8.88 x10^3/uL (1.8-6.8); SEGS% (MANUAL) 83 % (42-75)
[2020-08-07 07:01] LABS: <PLATELET ESTIMATE> ADEQUATE; <PLT MORPHOLOGY> NORMAL PLT MORPH
[2020-08-07 07:02] LABS: ANISOCYTOSIS 2+
[2020-08-07 07:03] LABS: HYPOCHROMIA 1+; MICROCYTOSIS 2+; OVALOCYTES 2+; TARGET CELLS 1+
[2020-08-07 07:04] LABS: SCHISTOCYTES 1+
[2020-08-07] MEDS: POTASSIUM CHLORIDE 10 MEQ TABLET.ER PO SCH (07:41)
[2020-08-07] MEDS: CALCIUM CARBONATE 500 MG TABLET PO SCH (07:41)
[2020-08-07] MEDS: NORETHINDRONE 5 MG TAB PO SCH (07:41)
[2020-08-07] MEDS: MAGNESIUM OXIDE 400 MG TABLET PO SCH ×2 (07:41→22:46)
[2020-08-07] MEDS: SIMETHICONE 80 MG CHEW TAB PO SCH ×2 (07:41→22:46)
[2020-08-07] MEDS: HYDROmorphone 1 MG/ML, 1ML INJ IV PRN ×2 (09:01→11:11)
[2020-08-07] MEDS: SODIUM CHLORIDE FLUSH 10ML SYR IVF SCH ×2 (09:05→20:54)
[2020-08-07 09:10] VITALS: BP 125/81
[2020-08-07] MEDS ORDERED: LIDOCAINE 1%, 10ML ONE ×2 (10:17→12:21)
[2020-08-07] MEDS ORDERED: MIDAZOLAM 1 MG/ML, 5ML ONE (11:09)
[2020-08-07] MEDS ORDERED: FENTANYL PF 100 MCG/2ML ONE (11:09)
[2020-08-07] MEDS ORDERED: FLUMAZENIL 0.1 MG/1 ML, 5ML ONE (11:10)
[2020-08-07] MEDS ORDERED: NALOXONE 1 MG/ML, 2ML ONE (11:10)
[2020-08-07 19:11] VITALS: BP 111/76
[2020-08-08] VITALS (7 sets, daily range): BP systolic 102–115; BP diastolic 50–79
[2020-08-08] MEDS: PIPERACILLIN/TAZO/PMX 3.375GM 50 ML IV SCH ×4 (02:34→20:42)
[2020-08-08] MEDS: OXYcodone/APAP 7.5/325MG TABLET PO PRN ×5 (02:34→20:44)
[2020-08-08 02:55] LABS: ALANINE AMINOTRANSFERASE 30 U/L (12-78); ANION GAP 9 mmol/L (5-15); CALCIUM 8.4 mg/dL (8.5-10.1); CHLORIDE 105 mmol/L (98-107)
[2020-08-08 02:57] LABS: ALKALINE PHOSPHATASE 324 U/L (45-117); BILIRUBIN,TOTAL 0.4 mg/dL (0.2-1.0); TOTAL PROTEIN 7.2 g/dL (6.4-8.2)
[2020-08-08 02:59] LABS: MEAN CORPUSCULAR HEMOGLOBIN 22.5 pg (27.0-34.8); MEAN CORPUSCULAR HGB CONC 32.2 g/dL (32.4-35.8); MEAN PLATELET VOLUME 8.5 fL (7.4-10.4); PLATELET COUNT 453 x10^3/uL (130-400); RED BLOOD COUNT 3.54 x10^6/uL (3.82-5.3); RED CELL DISTRIBUTION WIDTH 27.4 % (9.6-15.2)
[2020-08-08 03:38] LABS: MD YES
[2020-08-08 03:41] LABS: ANISOCYTOSIS 2+; BAND#(MANUAL) 0.16 x10^3/uL; BANDS%(MANUAL) 1 % (0-7); HYPOCHROMIA 1+; LYMPH#(MANUAL) 1.09 x10^3/uL (1-3.4); LYMPHS% (MANUAL) 7 % (22-44); MICROCYTOSIS 2+; MONOS#(MANUAL) 0.62 x10^3/uL (0.3-2.7); MONOS% (MANUAL) 4 % (2-9); SEG#(MANUAL) 13.64 x10^3/uL (1.8-6.8); SEGS% (MANUAL) 88 % (42-75)
[2020-08-08 03:42] LABS: <PLATELET ESTIMATE> INCREASED; <PLT MORPHOLOGY> NORMAL PLT MORPH; OVALOCYTES 2+; SCHISTOCYTES 1+; TARGET CELLS 1+; TEAR DROPS 1+
[2020-08-08] MEDS: IBUPROFEN 600 MG TABLET PO SCH ×4 (04:50→20:43)
[2020-08-08] MEDS: PANTOPRAZOLE 40MG TABLET PO SCH (06:43)
[2020-08-08] MEDS ORDERED: POTASSIUM CHLORIDE 20 MEQ TAB.ER.PRT PO ONE (07:30)
[2020-08-08] MEDS: CALCIUM CARBONATE 500 MG TABLET PO SCH (08:24)
[2020-08-08] MEDS: SIMETHICONE 80 MG CHEW TAB PO SCH ×2 (08:24→20:43)
[2020-08-08] MEDS: SODIUM CHLORIDE FLUSH 10ML SYR IVF SCH ×2 (08:25→20:47)
[2020-08-08] MEDS: MAGNESIUM OXIDE 400 MG TABLET PO SCH ×2 (08:25→20:43)
[2020-08-08] MEDS: NORETHINDRONE 5 MG TAB PO SCH (08:25)
[2020-08-08] MEDS: POTASSIUM CHLORIDE 10 MEQ TABLET.ER PO SCH (08:34)
[2020-08-09] MEDS: OXYcodone/APAP 7.5/325MG TABLET PO PRN ×6 (00:49→22:38)
[2020-08-09 01:34] VITALS: BP 102/56
[2020-08-09] MEDS: PIPERACILLIN/TAZO/PMX 3.375GM 50 ML IV SCH ×4 (02:46→20:50)
[2020-08-09 05:26] LABS: BASOPHILS % (AUTO) 0 % (0-1); EOSINOPHILS % (AUTO) 1 % (1-7); LYMPHOCYTES % (AUTO) 16 % (22-44); MEAN CORPUSCULAR HEMOGLOBIN 22.6 pg (27.0-34.8); MEAN CORPUSCULAR HGB CONC 32.6 g/dL (32.4-35.8); MEAN PLATELET VOLUME 7.9 fL (7.4-10.4); MONOCYTES % (AUTO) 7 % (2-9); NEUTROPHILS % (AUTO) 76 % (42-75); PLATELET COUNT 439 x10^3/uL (130-400); RED BLOOD COUNT 3.26 x10^6/uL (3.82-5.3)
[2020-08-09 05:36] LABS: ALANINE AMINOTRANSFERASE 24 U/L (12-78); ALBUMIN 1.9 g/dL (3.4-5.0); ANION GAP 7 mmol/L (5-15); CALCIUM 8.6 mg/dL (8.5-10.1); CHLORIDE 107 mmol/L (98-107); CREATININE 0.65 mg/dL (0.55-1.02)
[2020-08-09 05:38] LABS: ALKALINE PHOSPHATASE 286 U/L (45-117); BILIRUBIN,TOTAL 0.5 mg/dL (0.2-1.0); TOTAL PROTEIN 7.1 g/dL (6.4-8.2)
[2020-08-09 06:17] LABS: MD SCAN
[2020-08-09] MEDS: PANTOPRAZOLE 40MG TABLET PO SCH (06:32)
[2020-08-09] MEDS: IBUPROFEN 600 MG TABLET PO SCH ×4 (06:32→20:50)
[2020-08-09 07:30] VITALS: BP 112/71
[2020-08-09] MEDS: NORETHINDRONE 5 MG TAB PO SCH (09:03)
[2020-08-09] MEDS: MAGNESIUM OXIDE 400 MG TABLET PO SCH ×2 (09:03→20:50)
[2020-08-09] MEDS: CALCIUM CARBONATE 500 MG TABLET PO SCH (09:03)
[2020-08-09] MEDS: SIMETHICONE 80 MG CHEW TAB PO SCH ×2 (09:03→20:50)
[2020-08-09] MEDS: POTASSIUM CHLORIDE 10 MEQ TABLET.ER PO SCH (09:03)
[2020-08-09] MEDS: SODIUM CHLORIDE FLUSH 10ML SYR IVF SCH ×2 (09:06→20:51)
[2020-08-09 13:40] VITALS: BP 127/86
[2020-08-09 19:11] VITALS: BP 127/76
[2020-08-10 00:35] VITALS: BP 110/67
[2020-08-10] MEDS: PIPERACILLIN/TAZO/PMX 3.375GM 50 ML IV SCH ×4 (02:32→20:34)
[2020-08-10] MEDS: OXYcodone/APAP 7.5/325MG TABLET PO PRN ×5 (02:32→20:35)
[2020-08-10] MEDS ORDERED: CATHFLO-ALTEPLASE 2 MG/2 ML CATHFLUSH ONE (05:00)
[2020-08-10] MEDS: IBUPROFEN 600 MG TABLET PO SCH ×4 (05:01→20:34)
[2020-08-10] MEDS: PANTOPRAZOLE 40MG TABLET PO SCH (05:01)
[2020-08-10 05:50] LABS: BASOPHILS % (AUTO) 0 % (0-1); EOSINOPHILS % (AUTO) 0 % (1-7); LYMPHOCYTES % (AUTO) 16 % (22-44); MEAN CORPUSCULAR HEMOGLOBIN 22.4 pg (27.0-34.8); MEAN CORPUSCULAR HGB CONC 32.5 g/dL (32.4-35.8); MEAN PLATELET VOLUME 7.7 fL (7.4-10.4); MONOCYTES % (AUTO) 6 % (2-9); NEUTROPHILS % (AUTO) 78 % (42-75); PLATELET COUNT 541 x10^3/uL (130-400); RED BLOOD COUNT 3.35 x10^6/uL (3.82-5.3); RED CELL DISTRIBUTION WIDTH 27.5 % (9.6-15.2)
[2020-08-10 06:00] LABS: ANION GAP 8 mmol/L (5-15); CALCIUM 8.9 mg/dL (8.5-10.1); CHLORIDE 106 mmol/L (98-107); CREATININE 0.64 mg/dL (0.55-1.02)
[2020-08-10 06:25] LABS: MD MORPH REVIEW ONLY
[2020-08-10 06:26] LABS: ANISOCYTOSIS 2+; MICROCYTOSIS 2+
[2020-08-10 06:27] LABS: HYPOCHROMIA 1+; OVALOCYTES 2+; TEAR DROPS 1+
[2020-08-10 06:29] LABS: <PLATELET ESTIMATE> INCREASED; <PLT MORPHOLOGY> NORMAL PLT MORPH; SCHISTOCYTES 1+
[2020-08-10 08:00] VITALS: BP 112/71
[2020-08-10] MEDS: CALCIUM CARBONATE 500 MG TABLET PO SCH (08:41)
[2020-08-10] MEDS: SIMETHICONE 80 MG CHEW TAB PO SCH ×3 (08:41→20:34)
[2020-08-10] MEDS: POTASSIUM CHLORIDE 10 MEQ TABLET.ER PO SCH (08:41)
[2020-08-10] MEDS: NORETHINDRONE 5 MG TAB PO SCH (08:42)
[2020-08-10] MEDS: SODIUM CHLORIDE FLUSH 10ML SYR IVF SCH ×2 (08:42→20:35)
[2020-08-10] MEDS: MAGNESIUM OXIDE 400 MG TABLET PO SCH ×2 (08:42→20:34)
[2020-08-10 14:10] VITALS: BP 126/84
[2020-08-10 19:52] VITALS: BP 106/70
[2020-08-11] MEDS: OXYcodone/APAP 7.5/325MG TABLET PO PRN ×2 (00:15→04:06)
[2020-08-11 00:55] VITALS: BP 143/77
[2020-08-11] MEDS: PIPERACILLIN/TAZO/PMX 3.375GM 50 ML IV SCH ×4 (02:23→20:20)
[2020-08-11 04:26] LABS: BASOPHILS % (AUTO) 0 % (0-1); EOSINOPHILS % (AUTO) 0 % (1-7); LYMPHOCYTES % (AUTO) 12 % (22-44); MEAN CORPUSCULAR HEMOGLOBIN 22.3 pg (27.0-34.8); MEAN CORPUSCULAR HGB CONC 32.5 g/dL (32.4-35.8); MEAN PLATELET VOLUME 8.4 fL (7.4-10.4); MONOCYTES % (AUTO) 7 % (2-9); NEUTROPHILS % (AUTO) 81 % (42-75); PLATELET COUNT 676 x10^3/uL (130-400); RED CELL DISTRIBUTION WIDTH 26.9 % (9.6-15.2)
[2020-08-11 04:57] LABS: MD SCAN
[2020-08-11] MEDS: IBUPROFEN 600 MG TABLET PO SCH ×2 (05:44→11:09)
[2020-08-11] MEDS: PANTOPRAZOLE 40MG TABLET PO SCH (05:44)
[2020-08-11 06:53] VITALS: BP 117/77
[2020-08-11] MEDS: ONDANSETRON 2MG/ML, 2ML IV PRN ×2 (08:42→16:25)
[2020-08-11] MEDS: SIMETHICONE 80 MG CHEW TAB PO SCH ×3 (09:00→20:21)
[2020-08-11] MEDS: CALCIUM CARBONATE 500 MG TABLET PO SCH (09:00)
[2020-08-11] MEDS: MAGNESIUM OXIDE 400 MG TABLET PO SCH ×2 (09:00→20:20)
[2020-08-11] MEDS: POTASSIUM CHLORIDE 10 MEQ TABLET.ER PO SCH (09:00)
[2020-08-11] MEDS: SODIUM CHLORIDE FLUSH 10ML SYR IVF SCH ×2 (09:00→20:23)
[2020-08-11] MEDS: NORETHINDRONE 5 MG TAB PO SCH (09:00)
[2020-08-11] MEDS ORDERED: HYDROmorphone 1 MG/ML, 1ML INJ ONE (09:08)
[2020-08-11] MEDS ORDERED: HYDROmorphone 1 MG/ML, 1ML INJ IV PRN (09:30)
[2020-08-11 12:45] VITALS: BP 105/69
[2020-08-11] MEDS: KETOROLAC 30 MG/1 ML IVPush SCH ×2 (16:25→22:59)
[2020-08-11 18:22] VITALS: BP 107/70
[2020-08-11] MEDS ORDERED: LORazepam 2 MG/ML, 1ML IVPush ONE (21:00)
[2020-08-11] MEDS ORDERED: PROMETHAZINE 25 MG/ML, 1ML IM PRN (21:00)
[2020-08-12 01:51] VITALS: BP 108/71
[2020-08-12] MEDS: PIPERACILLIN/TAZO/PMX 3.375GM 50 ML IV SCH ×4 (02:32→21:00)
[2020-08-12] MEDS: PANTOPRAZOLE 40MG TABLET PO SCH (04:59)
[2020-08-12] MEDS: KETOROLAC 30 MG/1 ML IVPush SCH ×4 (04:59→21:00)
[2020-08-12 05:30] LABS: ALANINE AMINOTRANSFERASE 18 U/L (12-78); ALBUMIN 2.3 g/dL (3.4-5.0); ANION GAP 8 mmol/L (5-15); CALCIUM 9.3 mg/dL (8.5-10.1); CHLORIDE 105 mmol/L (98-107); CREATININE 0.89 mg/dL (0.55-1.02)
[2020-08-12 05:33] LABS: ALKALINE PHOSPHATASE 303 U/L (45-117); BASOPHILS % (AUTO) 0 % (0-1); BILIRUBIN,TOTAL 0.7 mg/dL (0.2-1.0); EOSINOPHILS % (AUTO) 0 % (1-7); LYMPHOCYTES % (AUTO) 12 % (22-44); MEAN CORPUSCULAR HEMOGLOBIN 22.3 pg (27.0-34.8); MEAN CORPUSCULAR HGB CONC 32.5 g/dL (32.4-35.8); MEAN PLATELET VOLUME 7.5 fL (7.4-10.4); MONOCYTES % (AUTO) 8 % (2-9); NEUTROPHILS % (AUTO) 80 % (42-75); PLATELET COUNT 758 x10^3/uL (130-400); RED BLOOD COUNT 3.59 x10^6/uL (3.82-5.3); TOTAL PROTEIN 7.7 g/dL (6.4-8.2)
[2020-08-12 06:01] LABS: MD MORPH REVIEW ONLY
[2020-08-12 06:03] LABS: ANISOCYTOSIS 2+; HYPOCHROMIA 1+; MICROCYTOSIS 2+
[2020-08-12 06:04] LABS: <PLATELET ESTIMATE> INCREASED; <PLT MORPHOLOGY> NORMAL PLT MORPH; OVALOCYTES 2+; SCHISTOCYTES 1+; TEAR DROPS 1+
[2020-08-12 06:27] VITALS: BP 107/70
[2020-08-12] MEDS: MAGNESIUM OXIDE 400 MG TABLET PO SCH ×2 (09:06→21:00)
[2020-08-12] MEDS: CALCIUM CARBONATE 500 MG TABLET PO SCH (09:06)
[2020-08-12] MEDS: POTASSIUM CHLORIDE 10 MEQ TABLET.ER PO SCH (09:06)
[2020-08-12] MEDS: SIMETHICONE 80 MG CHEW TAB PO SCH ×3 (09:06→21:00)
[2020-08-12] MEDS: NORETHINDRONE 5 MG TAB PO SCH (09:06)
[2020-08-12] MEDS ORDERED: OMNIPAQUE 350 MG/ML, 100ML BOTTLE ONE (09:08)
[2020-08-12] MEDS: SODIUM CHLORIDE FLUSH 10ML SYR IVF SCH ×2 (09:17→21:00)
[2020-08-12] MEDS: LORazepam 0.5MG TABLET PO PRN ×2 (13:42→18:23)
[2020-08-12 14:59] VITALS: BP 108/75
[2020-08-12] MEDS: DIPHENHYDRAMINE 50 MG CAPSULE PO PRN (18:23)
[2020-08-12] MEDS: OXYcodone/APAP 7.5/325MG TABLET PO PRN ×2 (18:23→23:27)
[2020-08-12 19:03] VITALS: BP 108/69
[2020-08-13 01:17] VITALS: BP 100/61
[2020-08-13] MEDS: OXYcodone/APAP 7.5/325MG TABLET PO PRN ×2 (03:36→15:22)
[2020-08-13] MEDS: PIPERACILLIN/TAZO/PMX 3.375GM 50 ML IV SCH ×2 (03:36→09:06)
[2020-08-13] MEDS: KETOROLAC 30 MG/1 ML IVPush SCH ×3 (03:36→15:22)
[2020-08-13 04:08] LABS: ANION GAP 8 mmol/L (5-15); CALCIUM 8.4 mg/dL (8.5-10.1); CHLORIDE 105 mmol/L (98-107); CREATININE 0.76 mg/dL (0.55-1.02)
[2020-08-13] MEDS: PANTOPRAZOLE 40MG TABLET PO SCH (06:03)
[2020-08-13 07:15] VITALS: BP 99/64
[2020-08-13 08:58] LABS: BASOPHILS % (AUTO) 1 % (0-1); EOSINOPHILS % (AUTO) 0 % (1-7); LYMPHOCYTES % (AUTO) 14 % (22-44); MEAN CORPUSCULAR HEMOGLOBIN 22.4 pg (27.0-34.8); MEAN CORPUSCULAR HGB CONC 32.4 g/dL (32.4-35.8); MEAN PLATELET VOLUME 7.1 fL (7.4-10.4); MONOCYTES % (AUTO) 9 % (2-9); NEUTROPHILS % (AUTO) 76 % (42-75); PLATELET COUNT 668 x10^3/uL (130-400); RED BLOOD COUNT 3.14 x10^6/uL (3.82-5.3); RED CELL DISTRIBUTION WIDTH 26.6 % (9.6-15.2)
[2020-08-13] MEDS: MAGNESIUM OXIDE 400 MG TABLET PO SCH (09:06)
[2020-08-13] MEDS: CALCIUM CARBONATE 500 MG TABLET PO SCH (09:06)
[2020-08-13] MEDS: POTASSIUM CHLORIDE 10 MEQ TABLET.ER PO SCH (09:06)
[2020-08-13] MEDS: SIMETHICONE 80 MG CHEW TAB PO SCH ×2 (09:06→15:22)
[2020-08-13] MEDS: NORETHINDRONE 5 MG TAB PO SCH (09:06)
[2020-08-13] MEDS: SODIUM CHLORIDE FLUSH 10ML SYR IVF SCH (09:07)
[2020-08-13 09:39] LABS: ANISOCYTOSIS 2+; HYPOCHROMIA 1+; MD MORPH REVIEW ONLY; MICROCYTOSIS 2+; OVALOCYTES 2+
[2020-08-13 09:40] LABS: SCHISTOCYTES 1+; TARGET CELLS 1+
[2020-08-13 09:41] LABS: <PLATELET ESTIMATE> INCREASED; TEAR DROPS 1+
[2020-08-13 09:42] LABS: <PLT MORPHOLOGY> NORMAL PLT MORPH
[2020-08-13] MEDS ORDERED: ERTAPENEM 1 GM in SODIUM CHLORIDE 0.9% 50 ML IV SCH (11:00)
[2020-08-13] MEDS ORDERED: NORE5TAB PO (13:58)
[2020-08-13] MEDS ORDERED: SIME80TA16 PO (13:58)
[2020-08-13 14:15] VITALS: BP 112/73
== END 2020-08-13 16:40 | disposition home or self-care (01) | DRG 742 ==
LOC: ED 12:59 → EDIP 16:48 → 4NE 21:38 → DCLOUNGE 08-13 16:30
PROVIDERS: ADMIT Obstetrics & Gynecology Gynecology; ATTEND Obstetrics & Gynecology Gynecology
PROC: 0U914ZZ Drainage of Left Ovary, Percutaneous Endoscopic Approach (ICD-10-PCS; 2020-07-31)
PROC: 0DNW4ZZ Release Peritoneum, Percutaneous Endoscopic Approach (ICD-10-PCS; 2020-07-31)
PROC: 0DNU4ZZ Release Omentum, Percutaneous Endoscopic Approach (ICD-10-PCS; 2020-07-31)
PROC: 30233N1 Transfusion of Nonautologous Red Blood Cells into Peripheral Vein, Percutaneous Approach (ICD-10-PCS; 2020-07-31)
PROC: 0UB64ZZ Excision of Left Fallopian Tube, Percutaneous Endoscopic Approach (ICD-10-PCS; principal; 2020-07-31 08:45)
PROC: 02HV33Z Insertion of Infusion Device into Superior Vena Cava, Percutaneous Approach (ICD-10-PCS; 2020-08-04)
PROC: B5181ZA Fluoroscopy of Superior Vena Cava using Low Osmolar Contrast, Guidance (ICD-10-PCS; 2020-08-04)
PROC: 0W9J30Z Drainage of Pelvic Cavity with Drainage Device, Percutaneous Approach (ICD-10-PCS; 2020-08-07)
DX: D25.9 Leiomyoma of uterus, unspecified (principal); U07.1 COVID-19; K65.1 Peritoneal abscess; K61.1 Rectal abscess; K63.0 Abscess of intestine; N13.6 Pyonephrosis; D56.3 Thalassemia minor; E83.42 Hypomagnesemia; E86.0 Dehydration; E87.6 Hypokalemia; F41.9 Anxiety disorder, unspecified; L27.0 Generalized skin eruption due to drugs and medicaments taken internally; G89.18 Other acute postprocedural pain; N70.93 Salpingitis and oophoritis, unspecified; N73.6 Female pelvic peritoneal adhesions (postinfective); G89.29 Other chronic pain; R74.01 Elevation of levels of liver transaminase levels; N80.9 Endometriosis, unspecified; N83.292 Other ovarian cyst, left side; N83.291 Other ovarian cyst, right side; N92.0 Excessive and frequent menstruation with regular cycle; T40.2X5A Adverse effect of other opioids, initial encounter; Z79.2 Long term (current) use of antibiotics; Z80.3 Family history of malignant neoplasm of breast; Z80.41 Family history of malignant neoplasm of ovary; Z82.49 Family history of ischemic heart disease and other diseases of the circulatory system; Z88.5 Allergy status to narcotic agent; Z90.710 Acquired absence of both cervix and uterus; Z88.8 Allergy status to other drugs, medicaments and biological substances; Z79.899 Other long term (current) drug therapy
CPT/HCPCS: 36415; 75989; 84145; 99285; J3490; 36430; 36573; 49406; 71045; 74177; 76830; 76856; 80048; 80053; 80170; 81001; 82040; 83001; 83010; 83605; 83615; 83735; 84703; 85014; 85018; 85025; 85045; 85379; 85384; 85610; 85651; 85730; 86140; 86850; 86900; 86923; 87040; 87070; 87075; 87086; 87205; 87635; 88305; 99156; 99157; C1894; G0378; J0290; J0690; J1100; J1170; J1335; J1885; J2250; J2405; J2543; J2550; J2704; J2710; J2997; J3010; Q9967; C1729; C1751; C1769; J0330; J1580; J2060; J2310; J2370; J3475; J7030; J7120; P9016

== ENCOUNTER → 2020-09-08 | Outpatient (CLI) | payer OTHER ==
[~2020-09-08] MED LIST: IBUP-1623 PO; NORE5TAB PO; OXYC1TAB14 PO; PIPE4.5F2 INJ; SIME80TA16 PO
[2020-09-08 09:37] LABS: BASOPHILS % (AUTO) 1 % (0-1); EOSINOPHILS % (AUTO) 1 % (1-7); LYMPHOCYTES % (AUTO) 15 % (22-44); MEAN CORPUSCULAR HEMOGLOBIN 22.6 pg (27.0-34.8); MEAN CORPUSCULAR HGB CONC 31.6 g/dL (32.4-35.8); MEAN PLATELET VOLUME 7.1 fL (7.4-10.4); MONOCYTES % (AUTO) 8 % (2-9); NEUTROPHILS % (AUTO) 75 % (42-75); PLATELET COUNT 608 x10^3/uL (130-400); RED BLOOD COUNT 4.33 x10^6/uL (3.82-5.3); RED CELL DISTRIBUTION WIDTH 29.1 % (9.6-15.2)
[2020-09-08 09:47] LABS: INTERNATIONAL NORMALIZED RATIO 1.19 (0.93-1.1); PROTHROMBIN TIME 12.7 Seconds (9.6-11.5)
[2020-09-08 09:48] LABS: ALBUMIN 3.1 g/dL (3.4-5.0); ANION GAP 6 mmol/L (5-15); CHLORIDE 103 mmol/L (98-107)
[2020-09-08 09:53] LABS: ALANINE AMINOTRANSFERASE 48 U/L (12-78); ALKALINE PHOSPHATASE 277 U/L (45-117); BILIRUBIN,TOTAL 0.8 mg/dL (0.2-1.0); CREATININE 0.79 mg/dL (0.55-1.02); TOTAL PROTEIN 9.1 g/dL (6.4-8.2)
[2020-09-08 10:09] LABS: MD MORPH REVIEW ONLY
[2020-09-08 10:10] LABS: <PLATELET ESTIMATE> INCREASED; <PLT MORPHOLOGY> NORMAL PLT MORPH; ANISOCYTOSIS 2+; MICROCYTOSIS 2+
[2020-09-08 10:11] LABS: OVALOCYTES 1+; POLYCHROMASIA 1+; TARGET CELLS 1+; TEAR DROPS 1+
[2020-09-08 10:12] LABS: SPHEROCYTES 1+
== END | disposition home or self-care (01) ==
LOC: STAR 08:38
PROVIDERS: ATTEND Specialist
DX: Z01.818 Encounter for other preprocedural examination (principal); N80.9 Endometriosis, unspecified; N70.93 Salpingitis and oophoritis, unspecified; Z20.822 Contact with and (suspected) exposure to COVID-19
CPT/HCPCS: 36415; 80053; 84703; 85025; 85610; 85730; 86304; U0003

== ENCOUNTER 2020-09-09 13:11 | Outpatient (CLI) | payer OTHER ==
[2020-09-09] MEDS ORDERED: OMNIPAQUE 350 MG/ML, 100ML BOTTLE ONE (13:50)
== END 2020-09-09 23:59 | disposition home or self-care (01) ==
LOC: CFH 13:11
PROVIDERS: ATTEND Internal Medicine Infectious Disease
DX: K65.1 Peritoneal abscess (principal)
CPT/HCPCS: 74177; Q9967

== ENCOUNTER 2020-09-14 07:28 | Inpatient (IN) | payer OTHER ==
[~2020-09-14] VITALS: Ht 175.3 cm; Wt 63.0 kg
[~2020-09-14 07:28] MED LIST changes: +BUPIVACAINE/PF 0.25% ONE; +EPINEPHRINE 1 MG/ML, 1ML ONE
[2020-09-14] MEDS ORDERED: CHLORHEXIDINE 15 ML UDC MM ONE (08:00)
[2020-09-14] MEDS ORDERED: CEFOTETAN PMX 2GM/50ML 50 ML IVPB ONE (08:00)
[2020-09-14] MEDS ORDERED: LACTATED RINGERS 1,000 ML IV SCH (08:00)
[2020-09-14 08:03] LABS: HCG UR SG 1.024 (1.003-1.030)
[2020-09-14] MEDS ORDERED: ZOLP10TA PO (08:15)
[2020-09-14 08:17] VITALS: BP 107/70
[2020-09-14] MEDS ORDERED: MIDAZOLAM 1 MG/ML, 2ML ONE (11:04)
[2020-09-14] MEDS ORDERED: FENTANYL PF 250 MCG/5ML ONE (11:04)
[2020-09-14] MEDS ORDERED: ACETAMINOPHEN 650 MG/20.3 ML UDC ONE (11:25)
[2020-09-14] MEDS ORDERED: OXYcodone 5 MG/5 ML ORAL.SOL UDC ONE (11:25)
[2020-09-14] MEDS ORDERED: ACETAMINOPHEN 650 MG/20.3 ML UDC PO STA (11:29)
[2020-09-14] MEDS ORDERED: OXYcodone IR 5MG TABLET PO PRN (11:30)
[2020-09-14] MEDS ORDERED: PHENYLEPHRINE 10 MG/ML ONE (13:14)
[2020-09-14] MEDS ORDERED: PIPERACILLIN/TAZO/PMX 4.5GM 100 ML IVPB ONE (13:15)
[2020-09-14] MEDS ORDERED: EPINEPHRINE 1 MG/ML, 1ML INFIL ONE (13:40)
[2020-09-14] MEDS ORDERED: BUPIVACAINE/PF-EPI 0.25% 1:200K INFIL ONE (13:40)
[2020-09-14] MEDS ORDERED: METHOCARBAMOL 1,000 MG in DEXTROSE 5% 100 ML IV PRN (14:30)
[2020-09-14] MEDS ORDERED: ACETAMINOPHEN 325 MG TABLET PO PRN (14:30)
[2020-09-14] MEDS ORDERED: OXYcodone 5 MG/5 ML ORAL.SOL UDC PO PRN (14:30)
[2020-09-14] MEDS ORDERED: PROMETHAZINE 25 MG/ML, 1ML IVPush PRN (14:30)
[2020-09-14] MEDS ORDERED: ALBUTEROL SULFATE 2.5 MG/3 ML NPPB PRN (14:30)
[2020-09-14] MEDS ORDERED: LABETALOL 5MG/ML, 20ML IV PRN (14:30)
[2020-09-14] MEDS ORDERED: LORazepam 2 MG/ML, 1ML IVPush PRN ×2 (14:30→19:00)
[2020-09-14] MEDS ORDERED: hydrALAzine 20 MG/ML, 1ML IV PRN (14:30)
[2020-09-14] MEDS ORDERED: MEPERIDINE/PF 25MG/0.5ML IVPush PRN (14:30)
[2020-09-14] MEDS ORDERED: HYDROmorphone 2 MG/ML, 1ML ONE (14:51)
[2020-09-14] MEDS ORDERED: KETAMINE 50 MG/ML, 10ML ONE (14:51)
[2020-09-14] MEDS ORDERED: PROPOFOL 10 MG/ML, 20ML ONE (15:42)
[2020-09-14] MEDS ORDERED: GLYCOPYRROLATE 0.2MG/1ML, 5ML ONE (15:42)
[2020-09-14] MEDS ORDERED: NEOSTIGMINE 1 MG/ML, 10ML ONE (15:42)
[2020-09-14] MEDS ORDERED: ONDANSETRON 2MG/ML, 2ML ONE (15:42)
[2020-09-14] MEDS ORDERED: ROCURONIUM 10MG/ML,5ML ONE (15:42)
[2020-09-14] MEDS ORDERED: CALCIUM CHLORIDE 10%, 10ML SYR ONE (15:42)
[2020-09-14] MEDS ORDERED: DEXAMETHASONE 4 MG/ML, 1ML ONE (15:42)
[2020-09-14] MEDS ORDERED: BUPIVACAINE/PF 0.25% ONE ×2 (16:06)
[2020-09-14] MEDS ORDERED: HYDROmorphone 1 MG/ML, 1ML INJ ONE ×3 (17:54→18:34)
[2020-09-14] MEDS ORDERED: FENTANYL PF 100 MCG/2ML ONE ×2 (17:54→18:11)
[2020-09-14] MEDS: FENTANYL PF 100 MCG/2ML IV PRN ×4 (17:55→18:25)
[2020-09-14] MEDS: HYDROmorphone 1 MG/ML, 1ML INJ IVPush PRN ×6 (18:05→19:45)
[2020-09-14] MEDS ORDERED: MEPERIDINE/PF 25MG/ML,1ML ONE (18:24)
[2020-09-14 18:28] LABS: MEAN CORPUSCULAR HEMOGLOBIN 25.1 pg (27.0-34.8); MEAN CORPUSCULAR HGB CONC 32.1 g/dL (32.4-35.8); MEAN PLATELET VOLUME 8.1 fL (7.4-10.4); PLATELET COUNT 676 x10^3/uL (130-400); RED CELL DISTRIBUTION WIDTH 24.9 % (9.6-15.2)
[2020-09-14] MEDS ORDERED: POTASSIUM CHLORIDE 20 MEQ in D5%-0.45% NACL 1,000 ML IV SCH (18:30)
[2020-09-14 18:38] LABS: ALBUMIN 1.7 g/dL (3.4-5.0); ANION GAP 8 mmol/L (5-15); CALCIUM 8.4 mg/dL (8.5-10.1); CHLORIDE 109 mmol/L (98-107)
[2020-09-14] MEDS ORDERED: DIAZEPAM 5 MG/ML, 2ML ONE (18:38)
[2020-09-14 18:39] LABS: INTERNATIONAL NORMALIZED RATIO 1.26 (0.93-1.1); PROTHROMBIN TIME 13.4 Seconds (9.6-11.5)
[2020-09-14 18:42] LABS: ALANINE AMINOTRANSFERASE 28 U/L (12-78); ALKALINE PHOSPHATASE 148 U/L (45-117); BILIRUBIN,TOTAL 1.4 mg/dL (0.2-1.0); CREATININE 0.76 mg/dL (0.55-1.02); TOTAL PROTEIN 4.9 g/dL (6.4-8.2)
[2020-09-14 18:58] LABS: MD YES
[2020-09-14] MEDS ORDERED: DIAZEPAM 5 MG/ML, 2ML IVPush PRN (19:00)
[2020-09-14 19:04] LABS: <RBC MORPHOLOGY> NORMAL; ANISOCYTOSIS 1+; BANDS%(MANUAL) 19 % (0-7); BASOS#(MANUAL) 0.21 x10^3/uL (0-0.1); BASOS% (MANUAL) 1 % (0-1); LYMPH#(MANUAL) 4.31 x10^3/uL (1-3.4); LYMPHS% (MANUAL) 21 % (22-44); MICROCYTOSIS 1+; MONOS#(MANUAL) 1.23 x10^3/uL (0.3-2.7); MONOS% (MANUAL) 6 % (2-9); SEG#(MANUAL) 10.87 x10^3/uL (1.8-6.8); SEGS% (MANUAL) 53 % (42-75)
[2020-09-14 19:05] LABS: HYPOCHROMIA 1+
[2020-09-14 19:06] LABS: <PLATELET ESTIMATE> INCREASED; <PLT MORPHOLOGY> NORMAL PLT MORPH; OVALOCYTES 1+; SPHEROCYTES 1+
[2020-09-14] MEDS ORDERED: SODIUM CHLORIDE 0.9% 1,000ML IVBOLUS ONE (19:30)
[2020-09-14] MEDS: HYDROmorphone PCA 30 MG/30 ML IV PRN (19:34)
[2020-09-14] MEDS: KETOROLAC 30 MG/1 ML IV SCH (22:26)
[2020-09-14] MEDS: PIPERACILLIN/TAZO/PMX 3.375GM 50 ML IV SCH (22:26)
[2020-09-14] MEDS: FAMOTIDINE 20 MG/2 ML IV SCH (22:26)
[2020-09-15 00:10] VITALS: BP 109/80
[2020-09-15] MEDS ORDERED: ACETAMINOPHEN 325 MG TABLET PO PRN (00:30)
[2020-09-15 01:50] LABS: MICROSCOPIC INDICATED
[2020-09-15] MEDS: PIPERACILLIN/TAZO/PMX 3.375GM 50 ML IV SCH ×3 (04:18→17:36)
[2020-09-15 04:39] VITALS: BP 86/65
[2020-09-15 04:53] LABS: MEAN CORPUSCULAR HEMOGLOBIN 25.2 pg (27.0-34.8); MEAN CORPUSCULAR HGB CONC 32.8 g/dL (32.4-35.8); MEAN PLATELET VOLUME 7.7 fL (7.4-10.4); PLATELET COUNT 523 x10^3/uL (130-400); RED CELL DISTRIBUTION WIDTH 23.9 % (9.6-15.2)
[2020-09-15 05:05] LABS: ALBUMIN 1.8 g/dL (3.4-5.0); ANION GAP 7 mmol/L (5-15); CALCIUM 8.2 mg/dL (8.5-10.1); CHLORIDE 108 mmol/L (98-107); CREATININE 1.11 mg/dL (0.55-1.02)
[2020-09-15 05:43] LABS: MD YES
[2020-09-15 05:45] LABS: ANISOCYTOSIS 1+; BAND#(MANUAL) 5.46 x10^3/uL; BANDS%(MANUAL) 28 % (0-7); LYMPH#(MANUAL) 2.15 x10^3/uL (1-3.4); LYMPHS% (MANUAL) 11 % (22-44); MICROCYTOSIS 1+; MONOS#(MANUAL) 1.76 x10^3/uL (0.3-2.7); MONOS% (MANUAL) 9 % (2-9); SEG#(MANUAL) 10.14 x10^3/uL (1.8-6.8); SEGS% (MANUAL) 52 % (42-75)
[2020-09-15 05:46] LABS: HYPOCHROMIA 1+; OVALOCYTES 1+
[2020-09-15 05:47] LABS: <PLATELET ESTIMATE> INCREASED; <PLT MORPHOLOGY> NORMAL PLT MORPH; SPHEROCYTES 1+
[2020-09-15] MEDS: KETOROLAC 30 MG/1 ML IV SCH ×3 (06:20→22:11)
[2020-09-15 06:30] VITALS: BP 85/64
[2020-09-15] MEDS: FAMOTIDINE 20 MG/2 ML IV SCH ×2 (09:42→21:50)
[2020-09-15] MEDS: POTASSIUM CHLORIDE 20 MEQ in D5%-0.45% NACL 1,000 ML IV SCH ×3 (11:43→21:50)
[2020-09-15 14:36] VITALS: BP 91/67
[2020-09-15] MEDS: DIPHENHYDRAMINE 50 MG/ML, 1ML IVPush PRN ×2 (15:52→21:50)
[2020-09-15] MEDS: HYDROmorphone PCA 30 MG/30 ML IV PRN (17:36)
[2020-09-15] MEDS ORDERED: POTASSIUM CHLORIDE 20 MEQ in D5%-0.45% NACL 1,000 ML IV SCH (18:30)
[2020-09-15 19:15] VITALS: BP 91/61
[2020-09-16] VITALS (10 sets, daily range): BP systolic 87–113; BP diastolic 57–74
[2020-09-16] MEDS: PIPERACILLIN/TAZO/PMX 3.375GM 50 ML IV SCH ×4 (00:05→19:41)
[2020-09-16] MEDS: POTASSIUM CHLORIDE 20 MEQ in D5%-0.45% NACL 1,000 ML IV SCH ×4 (03:57→20:38)
[2020-09-16 04:56] LABS: ANION GAP 3 mmol/L (5-15); CALCIUM 7.5 mg/dL (8.5-10.1); CHLORIDE 107 mmol/L (98-107); CREATININE 0.63 mg/dL (0.55-1.02)
[2020-09-16 05:26] LABS: BASOPHILS % (AUTO) 0 % (0-1); EOSINOPHILS % (AUTO) 1 % (1-7); LYMPHOCYTES % (AUTO) 7 % (22-44); MEAN CORPUSCULAR HEMOGLOBIN 25.2 pg (27.0-34.8); MEAN PLATELET VOLUME 7.6 fL (7.4-10.4); MONOCYTES % (AUTO) 9 % (2-9); NEUTROPHILS % (AUTO) 84 % (42-75); PLATELET COUNT 296 x10^3/uL (130-400); RED BLOOD COUNT 2.51 x10^6/uL (3.82-5.3); RED CELL DISTRIBUTION WIDTH 24.6 % (9.6-15.2)
[2020-09-16 06:04] LABS: MD SCAN
[2020-09-16] MEDS: KETOROLAC 30 MG/1 ML IV SCH ×3 (06:17→21:52)
[2020-09-16] MEDS: FAMOTIDINE 20 MG/2 ML IV SCH ×2 (10:08→21:52)
[2020-09-16] MEDS: DIPHENHYDRAMINE 50 MG/ML, 1ML IVPush PRN ×2 (10:08→21:52)
[2020-09-16] MEDS: HYDROmorphone PCA 30 MG/30 ML IV PRN (17:28)
[2020-09-17] VITALS (10 sets, daily range): BP systolic 94–131; BP diastolic 62–88
[2020-09-17] MEDS: PIPERACILLIN/TAZO/PMX 3.375GM 50 ML IV SCH ×2 (01:48→07:36)
[2020-09-17] MEDS: POTASSIUM CHLORIDE 20 MEQ in D5%-0.45% NACL 1,000 ML IV SCH ×4 (02:31→18:41)
[2020-09-17 05:54] LABS: BASOPHILS % (AUTO) 0 % (0-1); EOSINOPHILS % (AUTO) 2 % (1-7); LYMPHOCYTES % (AUTO) 9 % (22-44); MEAN CORPUSCULAR HEMOGLOBIN 26.7 pg (27.0-34.8); MEAN CORPUSCULAR HGB CONC 33.6 g/dL (32.4-35.8); MEAN PLATELET VOLUME 7.8 fL (7.4-10.4); MONOCYTES % (AUTO) 7 % (2-9); NEUTROPHILS % (AUTO) 83 % (42-75); PLATELET COUNT 270 x10^3/uL (130-400); RED BLOOD COUNT 2.72 x10^6/uL (3.82-5.3); RED CELL DISTRIBUTION WIDTH 22.5 % (9.6-15.2)
[2020-09-17 05:55] LABS: CHLORIDE 109 mmol/L (98-107)
[2020-09-17 06:10] LABS: ALANINE AMINOTRANSFERASE 21 U/L (12-78); ALBUMIN 1.6 g/dL (3.4-5.0); ALKALINE PHOSPHATASE 127 U/L (45-117); ANION GAP 6 mmol/L (5-15); BILIRUBIN,TOTAL 0.8 mg/dL (0.2-1.0); CALCIUM 8.2 mg/dL (8.5-10.1); CREATININE 0.55 mg/dL (0.55-1.02)
[2020-09-17 06:27] LABS: ANISOCYTOSIS 1+; HYPOCHROMIA 1+; MD MORPH REVIEW ONLY; MICROCYTOSIS 1+; OVALOCYTES 1+
[2020-09-17 06:28] LABS: POLYCHROMASIA 1+
[2020-09-17 06:29] LABS: <PLATELET ESTIMATE> ADEQUATE; <PLT MORPHOLOGY> NORMAL PLT MORPH
[2020-09-17] MEDS: KETOROLAC 30 MG/1 ML IV SCH ×2 (06:39→15:04)
[2020-09-17] MEDS: FAMOTIDINE 20 MG/2 ML IV SCH ×2 (09:27→21:13)
[2020-09-17] MEDS: MEROPENEM 1 GM in SODIUM CHLORIDE 0.9% 100 ML IV SCH ×2 (11:13→18:41)
[2020-09-17] MEDS: DIPHENHYDRAMINE 50 MG/ML, 1ML IVPush PRN (17:06)
[2020-09-17] MEDS: HYDROmorphone PCA 30 MG/30 ML IV PRN (17:11)
[2020-09-18] MEDS: POTASSIUM CHLORIDE 20 MEQ in D5%-0.45% NACL 1,000 ML IV SCH ×5 (00:24→22:37)
[2020-09-18] MEDS: KETOROLAC 30 MG/1 ML IV SCH ×3 (00:24→16:49)
[2020-09-18] MEDS: MEROPENEM 1 GM in SODIUM CHLORIDE 0.9% 100 ML IV SCH ×3 (03:18→19:53)
[2020-09-18 03:22] VITALS: BP 131/83
[2020-09-18 04:58] LABS: BASOPHILS % (AUTO) 1 % (0-1); EOSINOPHILS % (AUTO) 2 % (1-7); LYMPHOCYTES % (AUTO) 14 % (22-44); MEAN CORPUSCULAR HEMOGLOBIN 27.1 pg (27.0-34.8); MEAN PLATELET VOLUME 7.4 fL (7.4-10.4); MONOCYTES % (AUTO) 7 % (2-9); NEUTROPHILS % (AUTO) 76 % (42-75); PLATELET COUNT 372 x10^3/uL (130-400); RED BLOOD COUNT 3.36 x10^6/uL (3.82-5.3); RED CELL DISTRIBUTION WIDTH 20.3 % (9.6-15.2)
[2020-09-18 05:08] LABS: ALANINE AMINOTRANSFERASE 21 U/L (12-78); ALBUMIN 1.7 g/dL (3.4-5.0); ANION GAP 4 mmol/L (5-15); CALCIUM 8.4 mg/dL (8.5-10.1); CHLORIDE 109 mmol/L (98-107)
[2020-09-18 05:10] LABS: ALKALINE PHOSPHATASE 162 U/L (45-117); BILIRUBIN,TOTAL 0.5 mg/dL (0.2-1.0); CREATININE 0.54 mg/dL (0.55-1.02); TOTAL PROTEIN 5.6 g/dL (6.4-8.2)
[2020-09-18 05:37] LABS: MD SCAN
[2020-09-18] MEDS: FAMOTIDINE 20 MG/2 ML IV SCH ×2 (08:19→19:53)
[2020-09-18 08:24] VITALS: BP 143/93
[2020-09-18 14:01] VITALS: BP 139/90
[2020-09-18] MEDS: DIPHENHYDRAMINE 50 MG/ML, 1ML IVPush PRN (15:41)
[2020-09-18] MEDS: HYDROmorphone PCA 30 MG/30 ML IV PRN (16:02)
[2020-09-18 20:52] VITALS: BP 145/93
[2020-09-19] MEDS: DIPHENHYDRAMINE 50 MG/ML, 1ML IVPush PRN ×2 (00:37→15:52)
[2020-09-19] MEDS: KETOROLAC 30 MG/1 ML IV SCH ×3 (00:37→15:52)
[2020-09-19 00:40] VITALS: BP 149/98
[2020-09-19] MEDS: MEROPENEM 1 GM in SODIUM CHLORIDE 0.9% 100 ML IV SCH ×3 (03:10→19:24)
[2020-09-19] MEDS: POTASSIUM CHLORIDE 20 MEQ in D5%-0.45% NACL 1,000 ML IV SCH ×4 (03:11→20:55)
[2020-09-19 06:14] LABS: ALANINE AMINOTRANSFERASE 34 U/L (12-78); ALBUMIN 1.7 g/dL (3.4-5.0); ANION GAP 2 mmol/L (5-15); CALCIUM 8.2 mg/dL (8.5-10.1); CHLORIDE 107 mmol/L (98-107); CREATININE 0.44 mg/dL (0.55-1.02)
[2020-09-19 06:16] LABS: ALKALINE PHOSPHATASE 716 U/L (45-117); BILIRUBIN,TOTAL 0.4 mg/dL (0.2-1.0); TOTAL PROTEIN 5.6 g/dL (6.4-8.2)
[2020-09-19 06:25] LABS: BASOPHILS % (AUTO) 1 % (0-1); EOSINOPHILS % (AUTO) 3 % (1-7); LYMPHOCYTES % (AUTO) 18 % (22-44); MEAN CORPUSCULAR HEMOGLOBIN 27.3 pg (27.0-34.8); MEAN CORPUSCULAR HGB CONC 34.2 g/dL (32.4-35.8); MEAN PLATELET VOLUME 7.2 fL (7.4-10.4); MONOCYTES % (AUTO) 9 % (2-9); NEUTROPHILS % (AUTO) 69 % (42-75); PLATELET COUNT 394 x10^3/uL (130-400); RED BLOOD COUNT 3.44 x10^6/uL (3.82-5.3); RED CELL DISTRIBUTION WIDTH 19.6 % (9.6-15.2)
[2020-09-19 06:54] LABS: MD SCAN
[2020-09-19] MEDS: FAMOTIDINE 20 MG/2 ML IV SCH ×2 (08:20→20:55)
[2020-09-19 08:40] VITALS: BP 141/88
[2020-09-19] MEDS: HYDROmorphone PCA 30 MG/30 ML IV PRN (11:27)
[2020-09-19 12:25] VITALS: BP 142/99
[2020-09-19] MEDS: ONDANSETRON 2MG/ML, 2ML IVPush PRN (18:20)
[2020-09-19 18:24] VITALS: BP 124/85
[2020-09-20] MEDS: ONDANSETRON 2MG/ML, 2ML IVPush PRN (00:28)
[2020-09-20 01:30] VITALS: BP 125/88
[2020-09-20] MEDS ORDERED: PROCHLORPERAZINE 5 MG/ML, 2ML IV PRN (01:30)
[2020-09-20] MEDS: POTASSIUM CHLORIDE 20 MEQ in D5%-0.45% NACL 1,000 ML IV SCH ×4 (01:51→22:56)
[2020-09-20] MEDS: MEROPENEM 1 GM in SODIUM CHLORIDE 0.9% 100 ML IV SCH ×3 (03:26→18:43)
[2020-09-20 05:23] LABS: ANION GAP 5 mmol/L (5-15); CALCIUM 8.5 mg/dL (8.5-10.1); CHLORIDE 106 mmol/L (98-107)
[2020-09-20 05:35] LABS: ALANINE AMINOTRANSFERASE 31 U/L (12-78); ALKALINE PHOSPHATASE 560 U/L (45-117); BILIRUBIN,TOTAL 0.5 mg/dL (0.2-1.0); CREATININE 0.46 mg/dL (0.55-1.02); GAMMA GLUTAMYL TRANSPEPTIDASE 509 U/L (5-55); TOTAL PROTEIN 6.3 g/dL (6.4-8.2)
[2020-09-20] MEDS: HYDROmorphone PCA 30 MG/30 ML IV PRN (05:54)
[2020-09-20 06:50] VITALS: BP 139/93
[2020-09-20 07:42] LABS: MEAN CORPUSCULAR HEMOGLOBIN 27.2 pg (27.0-34.8); MEAN CORPUSCULAR HGB CONC 34.2 g/dL (32.4-35.8); MEAN PLATELET VOLUME 7.1 fL (7.4-10.4); PLATELET COUNT 712 x10^3/uL (130-400); RED BLOOD COUNT 4.93 x10^6/uL (3.82-5.3); RED CELL DISTRIBUTION WIDTH 20.9 % (9.6-15.2)
[2020-09-20 08:05] LABS: MD YES
[2020-09-20 08:07] LABS: HCT (SEDRATE) 39.2 % (34.6-47.8)
[2020-09-20 08:09] LABS: LYMPH#(MANUAL) 1.99 x10^3/uL (1-3.4); LYMPHS% (MANUAL) 10 % (22-44); MONOS% (MANUAL) 4 % (2-9); SEG#(MANUAL) 17.11 x10^3/uL (1.8-6.8); SEGS% (MANUAL) 86 % (42-75)
[2020-09-20 08:10] LABS: ANISOCYTOSIS 1+; POLYCHROMASIA 1+
[2020-09-20 08:11] LABS: <PLATELET ESTIMATE> INCREASED; <PLT MORPHOLOGY> NORMAL PLT MORPH; MICROCYTOSIS 1+; OVALOCYTES 1+
[2020-09-20] MEDS: FAMOTIDINE 20 MG/2 ML IV SCH ×2 (08:40→21:57)
[2020-09-20] MEDS ORDERED: OMNIPAQUE 350 MG/ML, 100ML BOTTLE ONE (11:03)
[2020-09-20 13:15] VITALS: BP 129/82
[2020-09-20] MEDS ORDERED: FENTANYL PF 100 MCG/2ML ONE (15:24)
[2020-09-20] MEDS ORDERED: NALOXONE 1 MG/ML, 2ML ONE (15:24)
[2020-09-20] MEDS ORDERED: FLUMAZENIL 0.1 MG/1 ML, 5ML ONE (15:24)
[2020-09-20] MEDS ORDERED: MIDAZOLAM 1 MG/ML, 5ML ONE (15:24)
[2020-09-20] MEDS ORDERED: LIDOCAINE 1%, 10ML ONE (15:36)
[2020-09-20 18:28] VITALS: BP 143/97
[2020-09-21 00:22] VITALS: BP 136/83
[2020-09-21] MEDS: MEROPENEM 1 GM in SODIUM CHLORIDE 0.9% 100 ML IV SCH ×3 (03:04→18:54)
[2020-09-21 04:15] LABS: BASOPHILS % (AUTO) 1 % (0-1); EOSINOPHILS % (AUTO) 3 % (1-7); LYMPHOCYTES % (AUTO) 23 % (22-44); MEAN CORPUSCULAR HEMOGLOBIN 26.6 pg (27.0-34.8); MEAN CORPUSCULAR HGB CONC 33.3 g/dL (32.4-35.8); MEAN PLATELET VOLUME 7.1 fL (7.4-10.4); MONOCYTES % (AUTO) 9 % (2-9); NEUTROPHILS % (AUTO) 65 % (42-75); PLATELET COUNT 623 x10^3/uL (130-400); RED BLOOD COUNT 4.22 x10^6/uL (3.82-5.3); RED CELL DISTRIBUTION WIDTH 21.2 % (9.6-15.2)
[2020-09-21] MEDS: HYDROmorphone PCA 30 MG/30 ML IV PRN (04:58)
[2020-09-21 05:37] LABS: MD SCAN
[2020-09-21] MEDS: FAMOTIDINE 20 MG/2 ML IV SCH ×2 (07:25→19:59)
[2020-09-21] MEDS: POTASSIUM CHLORIDE 20 MEQ in D5%-0.45% NACL 1,000 ML IV SCH ×2 (08:03→23:04)
[2020-09-21 08:40] VITALS: BP 141/87
[2020-09-21 13:05] VITALS: BP 132/89
[2020-09-21 19:40] VITALS: BP 137/81
[2020-09-22 01:38] VITALS: BP 139/88
[2020-09-22] MEDS: MEROPENEM 1 GM in SODIUM CHLORIDE 0.9% 100 ML IV SCH ×3 (03:10→20:02)
[2020-09-22 05:58] LABS: BASOPHILS % (AUTO) 0 % (0-1); EOSINOPHILS % (AUTO) 3 % (1-7); LYMPHOCYTES % (AUTO) 20 % (22-44); MEAN CORPUSCULAR HEMOGLOBIN 26.7 pg (27.0-34.8); MEAN CORPUSCULAR HGB CONC 33.8 g/dL (32.4-35.8); MEAN PLATELET VOLUME 7.3 fL (7.4-10.4); MONOCYTES % (AUTO) 7 % (2-9); NEUTROPHILS % (AUTO) 69 % (42-75); PLATELET COUNT 521 x10^3/uL (130-400); RED BLOOD COUNT 3.74 x10^6/uL (3.82-5.3)
[2020-09-22 06:29] LABS: MD MORPH REVIEW ONLY
[2020-09-22 06:32] LABS: <PLATELET ESTIMATE> INCREASED; <PLT MORPHOLOGY> NORMAL PLT MORPH; ANISOCYTOSIS 2+; HYPOCHROMIA 1+; MICROCYTOSIS 1+; OVALOCYTES 1+
[2020-09-22 08:10] VITALS: BP 142/91
[2020-09-22] MEDS: FAMOTIDINE 20 MG TABLET PO SCH ×2 (09:32→20:03)
[2020-09-22] MEDS: IBUPROFEN 600 MG TABLET PO SCH ×3 (09:32→20:03)
[2020-09-22] MEDS: OXYcodone/APAP 5/325MG TABLET PO SCH ×4 (09:48→22:09)
[2020-09-22] MEDS ORDERED: HYDROmorphone 1 MG/ML, 1ML INJ IV PRN (10:00)
[2020-09-22] MEDS ORDERED: MEDROXYPROGESTERONE ACETATE 150 MG/ML IM ONE (11:00)
[2020-09-22 12:45] VITALS: BP 144/86
[2020-09-22 19:27] VITALS: BP 136/84
[2020-09-22] MEDS: DIPHENHYDRAMINE 50 MG/ML, 1ML IVPush PRN (22:09)
[2020-09-23 01:39] VITALS: BP 136/85
[2020-09-23] MEDS: OXYcodone/APAP 5/325MG TABLET PO SCH ×6 (02:12→21:51)
[2020-09-23] MEDS: MEROPENEM 1 GM in SODIUM CHLORIDE 0.9% 100 ML IV SCH ×3 (04:03→20:43)
[2020-09-23 05:33] LABS: BASOPHILS % (AUTO) 1 % (0-1); EOSINOPHILS % (AUTO) 3 % (1-7); LYMPHOCYTES % (AUTO) 23 % (22-44); MEAN CORPUSCULAR HEMOGLOBIN 26.7 pg (27.0-34.8); MEAN PLATELET VOLUME 7.1 fL (7.4-10.4); MONOCYTES % (AUTO) 6 % (2-9); NEUTROPHILS % (AUTO) 68 % (42-75); PLATELET COUNT 629 x10^3/uL (130-400); RED BLOOD COUNT 3.91 x10^6/uL (3.82-5.3)
[2020-09-23 05:46] LABS: ANION GAP 5 mmol/L (5-15); CALCIUM 8.5 mg/dL (8.5-10.1); CHLORIDE 106 mmol/L (98-107)
[2020-09-23 05:50] LABS: CREATININE 0.51 mg/dL (0.55-1.02)
[2020-09-23 06:05] LABS: ANISOCYTOSIS 2+; HYPOCHROMIA 1+; MD MORPH REVIEW ONLY; MICROCYTOSIS 1+; OVALOCYTES 1+
[2020-09-23] MEDS: IBUPROFEN 600 MG TABLET PO SCH ×4 (06:05→20:43)
[2020-09-23 06:06] LABS: <PLATELET ESTIMATE> INCREASED; <PLT MORPHOLOGY> NORMAL PLT MORPH; TARGET CELLS 1+
[2020-09-23 06:09] LABS: SPHEROCYTES 1+
[2020-09-23 09:15] VITALS: BP 148/85
[2020-09-23] MEDS: FAMOTIDINE 20 MG TABLET PO SCH ×2 (09:24→20:43)
[2020-09-23] MEDS: POTASSIUM CHLORIDE 20 MEQ TAB.ER.PRT PO SCH ×2 (12:40→17:50)
[2020-09-23 13:00] VITALS: BP 127/83
[2020-09-23 18:47] VITALS: BP 128/79
[2020-09-24 00:56] VITALS: BP 120/72
[2020-09-24] MEDS: DIPHENHYDRAMINE 50 MG/ML, 1ML IVPush PRN (02:16)
[2020-09-24] MEDS: OXYcodone/APAP 5/325MG TABLET PO SCH ×4 (02:17→13:32)
[2020-09-24] MEDS: MEROPENEM 1 GM in SODIUM CHLORIDE 0.9% 100 ML IV SCH (04:04)
[2020-09-24] MEDS: IBUPROFEN 600 MG TABLET PO SCH ×2 (06:05→11:02)
[2020-09-24 07:56] VITALS: BP 120/78
[2020-09-24] MEDS: POTASSIUM CHLORIDE 20 MEQ TAB.ER.PRT PO SCH (07:58)
[2020-09-24] MEDS: FAMOTIDINE 20 MG TABLET PO SCH (07:58)
[2020-09-24] MEDS ORDERED: ERTAPENEM 1 GM in SODIUM CHLORIDE 0.9% 50 ML IV SCH (09:30)
[2020-09-24 13:20] VITALS: BP 124/79
== END 2020-09-24 14:00 | disposition home or self-care (01) | DRG 854 ==
LOC: OUT 07:28 → 4NE 18:14 → DCLOUNGE 09-24 13:43
PROVIDERS: ADMIT Specialist; ATTEND Specialist
PROC: 0TJB4ZZ Inspection of Bladder, Percutaneous Endoscopic Approach (ICD-10-PCS; 2020-09-14)
PROC: 0UT90ZZ Resection of Uterus, Open Approach (ICD-10-PCS; 2020-09-14)
PROC: 0UB70ZZ Excision of Bilateral Fallopian Tubes, Open Approach (ICD-10-PCS; 2020-09-14)
PROC: 0UB20ZZ Excision of Bilateral Ovaries, Open Approach (ICD-10-PCS; 2020-09-14)
PROC: 0DRU07Z Replacement of Omentum with Autologous Tissue Substitute, Open Approach (ICD-10-PCS; 2020-09-14)
PROC: 8E0W4CZ Robotic Assisted Procedure of Trunk Region, Percutaneous Endoscopic Approach (ICD-10-PCS; 2020-09-14)
PROC: 0T7D8DZ Dilation of Urethra with Intraluminal Device, Via Natural or Artificial Opening Endoscopic (ICD-10-PCS; 2020-09-14)
PROC: 30233N1 Transfusion of Nonautologous Red Blood Cells into Peripheral Vein, Percutaneous Approach (ICD-10-PCS; 2020-09-14)
PROC: 0W9J3ZZ Drainage of Pelvic Cavity, Percutaneous Approach (ICD-10-PCS; 2020-09-14)
PROC: 0DNW4ZZ Release Peritoneum, Percutaneous Endoscopic Approach (ICD-10-PCS; principal; 2020-09-14 10:00)
PROC: 0T9B70Z Drainage of Bladder with Drainage Device, Via Natural or Artificial Opening (ICD-10-PCS; 2020-09-15)
DX: A41.9 Sepsis, unspecified organism (principal); D62 Acute posthemorrhagic anemia; D25.9 Leiomyoma of uterus, unspecified; D56.0 Alpha thalassemia; N73.9 Female pelvic inflammatory disease, unspecified; N94.89 Other specified conditions associated with female genital organs and menstrual cycle; K52.9 Noninfective gastroenteritis and colitis, unspecified; Z88.5 Allergy status to narcotic agent
CPT/HCPCS: 36415; 74018; 75989; J3490; 49405; 74177; 76700; 80048; 80053; 81001; 81025; 82040; 82977; 84075; 84080; 85025; 85610; 85651; 86140; 86850; 86900; 86923; 87040; 87070; 87075; 87077; 87086; 87186; 87205; 88302; 88304; 88305; 88307; 99156; 99157; G0378; J0171; J1100; J1170; J1335; J1885; J2175; J2185; J2250; J2405; J2543; J2704; J2710; J3010; J3360; J3480; Q9967; C1729; C1765; C1769; J0780; J1200; J2310; J2370; J2800; J7120; P9016

== ENCOUNTER 2020-10-05 12:38 | Outpatient (CLI) | payer OTHER ==
[~2020-10-05 12:38] MED LIST changes: -BUPIVACAINE/PF 0.25% ONE; -EPINEPHRINE 1 MG/ML, 1ML ONE; +ZOLP10TA PO
== END 2020-10-05 23:59 | disposition home or self-care (01) ==
LOC: RAD 12:38
PROVIDERS: ATTEND Nurse Practitioner Acute Care
DX: N80.8 Other endometriosis (principal); D50.8 Other iron deficiency anemias; Z88.5 Allergy status to narcotic agent; Z79.899 Other long term (current) drug therapy
CPT/HCPCS: 51600; 74430; Q9958

== ENCOUNTER 2020-10-08 10:32 | Outpatient (CLI) | payer OTHER ==
[2020-10-08] MEDS ORDERED: OMNIPAQUE 350 MG/ML, 100ML BOTTLE ONE (10:54)
== END 2020-10-08 23:59 | disposition home or self-care (01) ==
LOC: CFH 10:32
PROVIDERS: ATTEND Internal Medicine Infectious Disease
DX: K76.89 Other specified diseases of liver (principal); K65.1 Peritoneal abscess; J98.11 Atelectasis
CPT/HCPCS: 74177; Q9967